=== PATIENT | male | born 1985 | race Caucasian/White ===

== ENCOUNTER 2022-03-26 12:09 | Inpatient (IN) | payer OTHER, SELFPAY ==
[2022-03-26] VITALS (10 sets, daily range): BP systolic 112–168; BP diastolic 67–100; PULSE 47–69; RESP 11–22; TEMP 36.1–37.1; O2SAT 95–100; BMI 41.1
--- NOTE | ~2022-03-26 | XR_ITS ---
EXAMINATION: XR WRIST, RIGHT CLINICAL INFORMATION: Pain, deformity COMPARISON: None TECHNIQUE: Two views of the right wrist. FINDINGS: Comminuted fracture of the distal radius. This includes a transverse fracture plane. Lucency extending adjacent articular surface, raising the possibility of intra-articular extension of the fracture plane. There is dorsal displacement of distal bone by proximally 7 mm . There is dorsal angulation of the distal bone. There is apparent dysmorphic appearance with slight bowing of the radius at the level of the distal radial metaphysis, which could represent a subtle fracture in this region. Question subtle fracture of the distal ulna/ulnar styloid with subtle lucency and slightly displaced osseous fragment along the medial aspect. Ulna negative variance. Soft tissue swelling around the wrist. XR/XR wrist RT 2V IMPRESSION: Comminuted displaced distal radial fracture. Intra-articular extension cannot be excluded. Question subtle bowing deformity of the distal radial diaphysis, as seen on the lateral view. Question subtle fracture of the distal ulna/ulnar styloid process, with a small displaced osseous fragment present in this region. Soft tissue swelling.
--- NOTE | ~2022-03-26 | FL_ITS ---
EXAMINATION: XR FLUOROSCOPY WITH IMAGES CLINICAL INFORMATION: Distal radius fracture. COMPARISON: 03/26/2022 TECHNIQUE: Fluoroscopy performed by Dr. Gongora. Fluoroscopy time: 41.92 seconds. Cumulative Dose: 1.5328 mGy. DAP: 0.0926 Gy-cm2. Images: 2. FINDINGS: There is placement of plate and screw fixation hardware transfixing the distal radial fracture with near-anatomic alignment. FL/FL guidance in OR IMPRESSION: Near-anatomic alignment of the distal radial fracture status post fixation.
--- NOTE | 2022-03-26 12:36 | ED_ITS ---
HPI - Extremity Problem General Chief complaint: Extremity Injury, Upper Stated complaint: WRIST PAIN S/P FALL Time Seen by Provider: 03/26/22 12:36 Source: patient and EMS Mode of arrival: EMS Limitations: no limitations History of Present Illness HPI Narrative: Patient is a 36 year old male presenting to the emergency department today with right wrist pain. Patient states that he was mowing the lawn when he fell backwards onto an out stretched right hand. Patient states that he did not hit his head in the incident and did not have any loss of consciousness with the incident. Patient denies any dizziness, lightheadedness, abdominal pain, nausea, vomiting, fever, chills, blurry vision, double vision, loss of vision, chest pain, difficulty breathing, shortness of breath, back pain, night sweats, pain with urination, increased urinary frequency, increased urinary urgency, blood in his urine or stool, syncope or a near syncopal episode, bowel incontinence, bladder incontinence, bowel retention, bladder retention, or any other complaints at this time. MD Complaint: extremity pain and extremity swelling Onset (ago): minute(s) Pain Consistency: constant Location: right and upper extremity Severity scale (1-10): 10 Quality: aching Radiation: none Relieving factors: nothing Exacerbating factors: range of motion Associated symptoms: denies other symptoms Related Data Allergies Allergy/AdvReac Type Severity Reaction Status Date / Time No Known Allergies Allergy Unverified 04/18/20 18:42 [No Known Allergies*] Review of Systems Constitutional: Constitutional: Reports no additional constitutional complaints, Denies chills, Denies fever(s) and Denies night sweats Eyes: Eyes: Reports no additional eye complaints, Denies blurry vision, Denies change in vision, Denies diplopia, Denies eye discharge, Denies loss of vision and Denies eye pain ENT: Denies dizziness Cardiovascular: Cardiovascular: Reports no additional cardiovascular compl aints, Denies chest pain, Denies lightheadedness, Denies Loss of Consciousness and Denies dyspnea Respiratory: Respiratory: Reports no additional respiratory complaints and Denies dyspnea Gastrointestinal: Gastrointestinal: Reports no additional gastrointestinal complaints, Denies abdominal pain, Denies melena, Denies hematochezia, Denies change in bowel habits and Denies change in stool character Genitourinary: Genitourinary: Reports no additional male genitourinary complaints, Denies hematuria, Denies oliguria, Denies difficulty urinating, Denies dysuria, Denies urinary frequency, Denies urinary hesitancy, Denies urinary incontinence and Denies urinary urgency Musculoskeletal: Musculoskeletal: Reports no additional musculoskeletal complaints, Denies numbness and Denies tingling Comments: right wrist pain Neurologic: Denies dizziness, Denies loss of vision, Denies numbness and Denies tingling Psychiatric: Psychiatric: Reports no additional psychiatric complaints Endocrine: Endocrine: Reports no additional endocrine complaints Hematologic/Lymphatic: Hematologic/Lymphatic: Reports no additional hematologic/lymphatic complaints Allergic/Immunologic: Allergic/Immunologic: Reports no additional allergic/immunologic complaints [facility] Past Medical History Attestation statement: The following information was validated with the patient. Source: old records reviewed Social History Social History Advance Directives: No Physical Exam Vital Signs: Vital Signs: Last Vital Signs Temp 98.6 F 03/26/22 12:25 Pulse 47 L 03/26/22 14:15 Resp 16 03/26/22 14:15 BP 154/91 H 03/26/22 14:15 Pulse Ox 99 03/26/22 14:15 O2 Del Method 03/26/22 14:15 BMI result Body Mass Index 41.1 Const: General: cooperative, no acute distress, alert and awake Nutritional Appearance: well nourished Orientation/consciousness: patient oriented x3 Limitations: no limitations HEENT: Head: Yes normal to inspection and Yes atraumatic Ears: hearing grossly normal bilaterally and external ears normal General nose exam: Normal external nose present, no nasal discharge noted and no epistaxis Face and sin us: Yes normal facial exam, No abrasion and No laceration Mouth: Normal oral and palatal mucosa present, no drooling and no muffled voice Eyes: General: appearance normal, both eyes and all related structures Periorbital: periorbital findings normal Eyelids: Yes eyelids normal Conjunctivae: conjunctivae normal Pupils: Equal, round and reactive pupils present EOM: EOMs intact bilaterally Neck: Neck: Yes normal visual inspection, Yes full ROM and Yes no lymphadenopathy Chest: Chest palpation & inspection: normal inspection of the chest Resp: Effort & Inspection: normal respiratory effort and able to speak in complete sentences Auscultation: clear to auscultation bilaterally Cardio: Rate: regular rate Rhythm: regular rhythm GI: Inspection: Yes normal to inspection Neuro: General: patient oriented x3 and moves all extremities Cranial nerves: Yes Equal, round and reactive pupils present Cognition (Neuro): normal cognition Motor exam (neuro): 5/5 motor strength present throughout Sensory Exam: Normal double simultaneous stimulation for sensation Coordination: [id number] test normal Extrem: Other: right wrist has obvious deformity with bruising to the volar radial aspect and a small area of bleeding, I believe this to be where the fracture punctured the skin though no bone is currently exposed General: Yes capillary refill normal Psych: Appearance: grossly normal Mental Status: mental status grossly normal Affect: normal affect Attitude: cooperative Thought process: Normal thought process present Thought content: Normal thought content present Insight: Good insight present (Psych) MDM - Extremity (Nontraumatic) MDM Narrative Medical decision making narrative: Patient is a 36 year old male presenting to the emergency department today with right wrist pain. Patient's physical exam showed obvious right wrist deformity with bruising to the volar radial aspect and minimal bleeding from the puncture of the fracture. Patient's blood work was unremarkable. Patient's right wrist x- ray showed a comminuted displaced distal radial fracture with a questionable fracture of the distal radial diaphysis and distal ulna/ulnar syloid process. I spoke to Dr. Gongora who requested I hang a broader antibiotic than ancef and stated that she would be taking the patient to the OR later this evening. Patient was brought up to date on tetanus, given Fentanyl and Dilaudid for pain management, and given Rocephin. I explained my physical exam findings as well as all test results to the patient. I answered all questions asked by the patient. Patient verbalized agreement and understanding with this treatment plan and transfer to the OR for procedure. Medical Records Attestation: I reviewed the patient's medical records. Lab Data Attestation: I reviewed the patient's lab results. Result diagrams: 03/26/22 13:16 03/26/22 13:16 Labs: Lab Results 03/26/22 03/26/22 03/26/22 Range/Units 13:16 13:16 13:16 WBC 9.7 (4.8-10.8) X10*3/uL RBC 4.43 L (4.60-5.80) X10*6/uL Hgb 14.1 (14.0-18.0) g/dl Hct 41.6 L (42.0-52.0) % MCV 93.9 (80.0-98.0) fL MCH 31.8 (27.0-33.0) pg MCHC 33.9 (31.0-36.0) g/dl RDW 12.6 (11.0-16.0) % Plt Count 296 (160-400) X10*3/uL MPV 8.7 L (9.4-12.4) fL Immature Gran % (Auto) 0.5 H (0.0-0.4) % Neut % (Auto) 62.1 (45-73) % Lymph % (Auto) 25.6 (20-40) % [place] % (Auto) 9.9 (2-11) % Eos % (Auto) 1.5 (0-4) % Baso % (Auto) 0.4 (0-2) % Lymph # (Auto) 2.5 (1.2-4.9) X10*3/uL [place] # (Auto) 1.0 (0.1-1.2) X10*3/uL Eos # (Auto) 0.2 (0.0-0.4) X10*3/uL Baso # (Auto) 0.0 (0.0-0.2) X10*3/uL Abs Immat Gran (auto) 0.05 H (0.00-0.03) X10*3/uL Absolute Neuts (auto) 6.0 (2.0-8.3) x10*3/uL Absolute Nucleated RBC 0.000 (0.0-0.012) X10*3/uL Nucleated RBC % (auto) 0.0 (0.0-0.2) /100WBC Sodium 139 (135-145) mmol/L Potassium 4.1 (3.3-5.1) mmol/L Chloride 106 (96-108) mmol/L Carbon Dioxide 24 (22-29) mmol/L Anion Gap 13 (12-20) BUN 16 (9-16) mg/dL Creatinine 0.80 (0.5-1.4) mg/dL Estim Creat Clear Calc 142.7 Estimated GFR > 60 Random Glucose 105 (60-115) mg/dL Calcium 9.1 (8.4-10.2) mg/dL Magnesium 1.8 (1.6-2.6) mg/dL Total Bilirubin 0.9 (0.0-1.0) mg/dL AST 20 (5-37) U/L ALT 27 (0-40) U/L Alkaline Phosphatase 59 (39-117) U/L Total Protein 7.3 (6.5-8.0) g/dL Albumin 4.2 (3.5-5.0) g/dL COVID-19 (RAVI) Negative (Negative) COVID-19 Clin Com See Note Imaging Data Right wrist x-ray: Attestation: I personally reviewed and interpreted this imaging study as follows: My impression: Acute wrist fracture. Radiologist's impression: EXAMINATION: XR WRIST, RIGHT CLINICAL INFORMATION: Pain, deformity? COMPARISON: None? TECHNIQUE: Two views of the right wrist. FINDINGS: Comminuted fracture of the distal radius. This includes a transverse fracture plane. Lucency extending adjacent articular surface, raising the possibility of intra-articular extension of the fracture plane. There is dorsal displacement of distal bone by proximally 7 mm . There is dorsal angulation of the distal bone. There is apparent dysmorphic appearance with slight bowing of the radius at the level of the distal radial metaphysis, which could represent a subtle fracture in this region. Question subtle fracture of the distal ulna/ulnar styloid with subtle lucency and slightly displaced osseous fragment along the medial aspect. Ulna negative variance. Soft tissue swelling around the wrist. XR/XR wrist RT 2V IMPRESSION: Comminuted displaced distal radial fracture. Intra-articular extension cannot be excluded. Question subtle bowing deformity of the distal radial diaphysis, as seen on the lateral view. ? Question subtle fracture of the distal ulna/ulnar styloid process, with a small displaced osseous fragment present in this region. ? Soft tissue swelling. Dictated By: Bill Dill MD Signed By: Electronically signed by Bill Dill MD 03/26/22 4287 Critical Care Time Critical Care Time Critical Care Time: Yes Total Critical Care Time: 30 Attestation: I spent 30 minutes of Critical Care Time with this patient. This does not include time spent on separately reported billable procedures. Discharge Plan Discharge Clinical Impression: Open fracture of right distal radius Patient Disposition: Still a Patient
[2022-03-26] MEDS: ondansetron HCL 4 MG/2 ML VIAL IVPUSH (13:02)
[2022-03-26] MEDS: fentaNYL citrate/PF 100 MCG/2 ML VIAL 50 MCG IVPUSH (13:02)
[2022-03-26 13:29] LABS: MANUAL DIFF FLAG NO
[2022-03-26] MEDS: cefTRIAXone sodium 2 GM in 0.9 % Sodium Chloride 50 ML IV (13:29)
[2022-03-26 13:30] LABS: Basophils Percent Auto 0.4 % (0-2); Eosinophils Absolute Auto 0.2 X10*3/uL (0.0-0.4); Eosinophils Percent Auto 1.5 % (0-4); Hematocrit 41.6 % (42.0-52.0); Hemoglobin 14.1 g/dl (14.0-18.0); Imm Gran Abs Auto 0.05 X10*3/uL (0.00-0.03); Imm Gran Pct Auto 0.5 % (0.0-0.4); Lymphocytes Absolute Auto 2.5 X10*3/uL (1.2-4.9); Lymphocytes Percent Auto 25.6 % (20-40); Mean Corpuscular HGB Conc 33.9 g/dl (31.0-36.0); Mean Corpuscular Hemoglobin 31.8 pg (27.0-33.0); Mean Corpuscular Volume 93.9 fL (80.0-98.0); Mean Platelet Volume 8.7 fL (9.4-12.4); Monocytes Percent Auto 9.9 % (2-11); Neutrophils Percent Auto 62.1 % (45-73); Platelet Count 296 X10*3/uL (160-400); Red Blood Count 4.43 X10*6/uL (4.60-5.80); Red Cell Distribution Width 12.6 % (11.0-16.0); White Blood Count 9.7 X10*3/uL (4.8-10.8)
[2022-03-26] MEDS: Diphth,Pertus(ACell),Tet Adult 0.5 ML SYRINGE IM (13:35)
[2022-03-26 13:53] LABS: Alanine Aminotransferase 27 U/L (0-40); Albumin Level 4.2 g/dL (3.5-5.0); Alkaline Phosphatase 59 U/L (39-117); Anion Gap 13 (12-20); Aspartate Amino Transferase 20 U/L (5-37); Bilirubin Total 0.9 mg/dL (0.0-1.0); Blood Urea Nitrogen 16 mg/dL (9-16); COVID-19 Test Negative (Negative); Calcium 9.1 mg/dL (8.4-10.2); Carbon Dioxide 24 mmol/L (22-29); Chloride 106 mmol/L (96-108); Creatinine Clr Calc Pharmacy 142.7; Estimated Glomerular Filt Rate > 60; Glucose Random 105 mg/dL (60-115); Magnesium 1.8 mg/dL (1.6-2.6); Potassium 4.1 mmol/L (3.3-5.1); Sodium 139 mmol/L (135-145); Total Protein 7.3 g/dL (6.5-8.0)
[2022-03-26] MEDS: HYDROmorphone HCl 1 MG/ML SYRINGE IVPUSH (14:37)
--- NOTE | 2022-03-26 15:58 | PM.CNOR ---
History of Present Illness [facility] Consult date: 03/26/22 Chief complaint: WRIST PAIN S/P FALL Narrative: the patient is a 36-year-old man who fell onto his outstretched right hand today while mowing the lawn. He appreciated and immediate Wrist deformity and an open wound on the volar aspect of his distal forearm. He complains of pain swelling ecchymosis and deformity of his right wrist. He also has some subjectively decreased sensation to the right thumb index and middle fingers. He denies pain about the elbow. Past medical history significant for HIV which he reports is being treated in an is no longer detectable. [facility] Social History Social History Advance Directives: No Meds Allergies Allergy/AdvReac Type Severity Reaction Status Date / Time No Known Allergies Allergy Unverified 04/18/20 18:42 [No Known Allergies*] Physical Exam Vital Signs: Vital Signs: Last Vital Signs Temp 98.6 F 03/26/22 12:25 Pulse 47 L 03/26/22 14:15 Resp 16 03/26/22 14:15 BP 154/91 H 03/26/22 14:15 Pulse Ox 99 03/26/22 14:15 O2 Del Method 03/26/22 14:15 BMI result Body Mass Index 41.1 Const: General: cooperative, healthy appearing and no acute distress Orientation/consciousness: oriented to person and oriented to place HEENT: Head: Yes normocephalic and Yes atraumatic Eyes: EOM: EOMs intact bilaterally Resp: Effort & Inspection: normal respiratory effort and able to speak in complete sentences Cardio: Jugular venous distension: no JVD Skin: General skin exam: turgor normal Rashes: no rashes Neuro: General: oriented to person and oriented to place Extrem: Other: Evaluation of right Upper Extremity: Neuro: decreased subjective sensation in the median nerve distribution of his right hand. More normal sensation to the small finger and dorsal aspect of the hand. Weak flexion extension of fingers limited by pain. Vascular: Cap refill brisk. Swelling and ecchymosis involving the right wrist. He also appears to be getting a pretty good size hematoma over the volar radial aspect of his right wrist where he has a small laceration consistent with a possible open distal radius fracture. Dinner fork deformity of the right wrist. No tenderness about the elbow. Radiographs: AP lateral of the right wrist Was reviewed by me today and shows a right distal radius fracture with dorsal displacement and an apex volar deformity. There is also a small ulnar styloid fracture. Psych: Appearance: grossly normal Affect: normal affect Attitude: cooperative Results Labs Result Diagrams: 03/26/22 13:16 03/26/22 13:16 Labs: Abnormal lab results 03/26/22 Range/Units 13:16 RBC 4.43 L (4.60-5.80) X10*6/uL Hct 41.6 L (42.0-52.0) % MPV 8.7 L (9.4-12.4) fL Immature Gran % (Auto) 0.5 H (0.0-0.4) % Abs Immat Gran (auto) 0.05 H (0.00-0.03) X10*3/uL H & H 03/26/22 Range/Units 13:16 Hgb 14.1 (14.0-18.0) g/dl Hct 41.6 L (42.0-52.0) % All other labs normal. Assessment and Plan (1) Open fracture of right distal radius: Status: Acute Plan assessment and plan: 1. Right open displaced distal radius fracture I educated him about this condition he is getting IV antibiotics in the emergency department. We discussed operative and non operative treatment options. I am recommending urgent / emergent I and D, open reduction internal fixation of the right to radius fracture and a right carpal tunnel release. The risks and benefits of operative treatment were discussed with the patient and the patient wishes to proceed with surgery. These risks include, but are not limited to risk of damage to blood vessels, nerves, tendons, infection, recurrence, incomplete relief of preoperative symptoms, persistent pain, possible need for further surgery and the risks associated with regional blocks and anesthesia. The plan is to take the patient to the operating room Today for the following procedures: 1. right open distal radius fracture I&D 2. ORIF of right distal radius fracture 3. Right carpal tunnel release All of the preoperative paperwork including the consent was filled out today. All the patient's questions were answered. Procedures Date of Service Date of Service: 03/26/22
--- NOTE | 2022-03-26 16:06 | W.PM.OPN ---
Operative Note Operative Note Date of Service: 03/26/22 Narrative: Operative Note Narrative: Preop diagnosis: 1. Open right Distal radius fracture 2. Acute right carpal tunnel syndrome Postop diagnosis: Same Procedure: 1. Open right distal radius fracture I and D 2. Right Distal radius fracture open reduction internal fixation 3. Right carpal tunnel release Surgeon: Sarita Gongora MD Anesthesia: General anesthesia plus regional block Findings: grade 1A open distal radius fracture, with volar poke hole from volar radial aspect of the radial shaft Implants: A 3 hole [employer] volar locking plate, with 5 X 2.3 mm locking pegs/screws, and 3 3.5 mm cortical screws Tourniquet time: 79 minutes EBL: 5.0 ml Specimen: None Drains: None Complications: None Disposition: Brought to the recovery room in stable condition Plan: admit overnight for IV antibiotics Follow-up in 4-7 days for wound check, and postop radiographs Anticipate suture removal at 10-14 days. Encourage no lifting of anything heavier than a cell phone. Please encourage active and passive range of motion of the digits. Follow-up at 4-5 weeks postop for repeat radiographs. Indications: The patient is a 36 year old man with an open right distal radius fracture with displacement, and acute carpal tunnel syndrome related to this injury. . The risks and benefits of operative treatment, including but not limited to risk of damage to blood vessels, nerves, tendons, infection, recurrence, persistent pain or numbness, incomplete resolution of preoperative symptoms, or need for further surgery were discussed with the patient and they wished to proceed with surgery. Procedure: Once consent was obtained patient was brought back to the operating suite and placed in the operating table in a supine position. A regional block was performed by the anesthesia team. Perioperative antibiotics and anesthesia was administered by the anesthesia team. A tourniquet was applied to the proximal aspect of the Right upper extremity and the limb was prepped and draped in a standard surgical fashion. The limb was elevated exsanguinated with Esmarch bandage and the tourniquet inflated to 250 mm of mercury for a total tourniquet time of 79 minutes. A 2.0 cm longitudinal incision was made centered over the right carpal tunnel. The incision was made through the skin to the subcutaneous tissues using a #15 blade. Dissection was made down to the level of the transverse carpal ligament with care being taken to protect the palmar cutaneous nerve. Once the transverse carpal ligament was clearly visualized, a longitudinal incision was made in the transverse carpal ligament 1st using a #15 blade, then using tenotomy scissors under direct visualization. Care was taken to look for and protect the motor branch of the median nerve when seen in this area. Once satisfied with our carpal tunnel release the wound was irrigated with normal saline. The FluoroScan was used throughout the case to assess our reduction, and facilitate implant placement. I made an 8 cm longitudinal incision over the distal aspect of the flexor carpi radialis tendon. The incision was made through the skin to the subcutaneous tissue using a 15. Blade. trauma within the subcutaneous tissues was immediately appreciated. The radial artery was displaced centrally and was somewhat free from its typical subcutaneous tasks mints. The volar radial corner of the radial shaft was noted within these subcutaneous tissues and is the most likely portion of the radius shaft that cause The 2 mm diameter open wound in the volar aspect of the distal forearm. I extended our incision proximally 2 additional cm proximally to find normal tissue and are volar forearm fascia. I identified the flexor carpi radialis tendon.. The FCR tendon sheath was then incised longitudinally using tenotomy scissors under direct visualization. The FCR tendon was then retracted ulnarly. I then made a longitudinal incision in the volar forearm fascia through the floor of FCR tendon sheath using tenotomy scissors under direct visualization. I identified the interval between the radial artery and the flexor tendons. This interval was developed further with my index finger, releasing some of the muscular fibers of the flexor pollicis longus. A dull weatlander retractor was then placed. I then created an ulnarly based flap of the pronator quadratus by releasing the radial and distal edges using a 15. Blade. A Lua elevator was used to elevate the pronator quadratus from the volar surface of the distal radius. This then revealed to us our distal radius fracture. I performed an I&D of air open fracture. A curette was used to carefully debride the end of the shaft of the radius which is the most likely portion of the radius the protruded through the skin. I did not see any gross debris. The fracture And soft tissues were then copiously irrigated with normal saline. An open reduction was then performed on our distal radius fracture. I then placed a standard 3 [facility] volar locking plate on the volar surface of the distal radius. I placed a single K-wire through the distal aspect of the plate and into the distal radius. This was assessed using fluoroscopic images. I was satisfied with the placement of our plate. I then placed 5 X 2.3 mm locking screws/pegs in the distal aspect of the plate and distal radius by 1st drilling bicortically with a 1.8 mm drill bit, measuring with a depth gauge, and placing the appropriate length locking screws/pegs. The placement of our plate and screws was then assessed again using fluoroscopic images. The once satisfied with the placement of the volar locking plate and screws on the distal aspect of the distal radius, the plate was then reduced to the shaft of the radius. I then placed 3 3.5 mm cortical screws to the proximal aspect of the plate and into the shaft of the radius. This was done by 1st drilling bicortically with a 2.8 mm drill bit, measuring with a depth gauge, and placing the appropriate length screw. Final radiographs were then obtained. The DRUJ was assessed and found to be stable on exam. I was satisfied with our reduction and placement of all implants. At this point the wound was again irrigated with normal saline. The pronator quadratus was reduced back over the volar locking plate. The tourniquet was then deflated and hemostasis was obtained with a brief period of local pressure and bipolar andmonopolar electrocautery. The subcutaneous layer was then reapproximated using some 4-0 Vicryl suture, and the skin edges were reapproximated using some 4-0 Prolene suture. The wound was then infiltrated with some 0.5% plain ropivacaine for postop pain control. A sterile dressing and a short dorsal splint allowing for active flexion and extension of the digits was applied. The patient appears to have tolerated the procedure well and with no complications. All digits were well vascularized conclusion of the case.
--- NOTE | 2022-03-26 17:17 | PC.NURSE ---
ambulating to and from bathroom w steady gait.
--- NOTE | 2022-03-26 18:41 | P.CONAN_ITS ---
HPI - Anesthesia Eval Consult details Narrative: Right radius fracture PMFSH Active Problems Active Problems: All Active Problems (Updated 03/26/22 @ 18:23 by Karoline Rider RN) Open fracture of right distal radius (Acute) Past Medical History Medical History (Updated 03/26/22 @ 18:23 by Karoline Rider RN) Asthma GERD (gastroesophageal reflux disease) HIV (human immunodeficiency virus infection) Hypertension Family History Family history of problems with anesthesia: No Surgical History History of Problems with Anesthesia: No Social History Social History Patient Tobacco Use Status: Current everyday Tobacco user Tobacco use type: Cigarette Use of substances other than those prescribed or required for medical reasons: Yes Are you DNR?: No Advance Directives: No Meds Allergies Allergy/AdvReac Type Severity Reaction Status Date / Time morphine AdvReac Itching Verified 03/26/22 18:18 Home Medications Medication Instructions Recorded Confirmed Last Taken Type abacavir 600 mg-dolutegravir 50 1 tab PO DAILY 03/26/22 03/26/22 Unknown History mg-lamivudine 300 mg tablet (Triumeq) lisinopril 20 1 tab PO DAILY 03/26/22 03/26/22 Unknown History mg-hydrochlorothiazide 25 mg tablet Exam Exam Date and Time: March 26, 20221840 Height,Weight and Vital Signs: Height 5 ft 4 in Weight 108.862 kg Last Vital Signs Temp 98.7 F 03/26/22 18:00 Pulse 50 03/26/22 18:00 Resp 11 L 03/26/22 18:00 BP 147/85 H 03/26/22 18:00 Pulse Ox 97 03/26/22 18:00 O2 Del Method 03/26/22 18:00 Pertinent Lab Results Pertinent Lab Results: Laboratory Tests 03/26/22 03/26/22 03/26/22 13:16 13:16 13:16 WBC 9.7 RBC 4.43 L Hgb 14.1 Hct 41.6 L MCV 93.9 MCH 31.8 MCHC 33.9 RDW 12.6 Plt Count 296 MPV 8.7 L Immature Gran % (Auto) 0.5 H Neut % (Auto) 62.1 Lymph % (Auto) 25.6 [place] % (Auto) 9.9 Eos % (Auto) 1.5 Baso % (Auto) 0.4 Lymph # (Auto) 2.5 [place] # (Auto) 1.0 Eos # (Auto) 0.2 Baso # (Auto) 0.0 Abs Immat Gran (auto) 0.05 H Absolute Neuts (auto) 6.0 Absolute Nucleated RBC 0.000 Nucleated RBC % (auto) 0.0 Sodium 139 Potassium 4.1 Chloride 106 Carbon Dioxide 24 Anion Gap 13 BUN 16 Creatinine 0.80 Estim Creat Clear Calc 142.7 Estimated GFR > 60 Random Glucose 105 Calcium 9.1 Magnesium 1.8 Total Bilirubin 0.9 AST 20 ALT 27 Alkaline Phosphatase 59 Total Protein 7.3 Albumin 4.2 COVID-19 (RAVI) Negative COVID-19 Clin Com See Note Airway Mallampati Class: II TM Dist: >3cm Neck ROM: Full Loose/Missing/Broken Teeth: No Heart: RRR Lungs: CTA Assessment and Plan Assessment Anesthesia Assessment: Anesthesia Plan Discussed and Chart Reviewed Final Anesthetic Review Family History of Problems with Anesthesia: No History of Problems with Anesthesia: No NPO: Yes ASA Class: III Final Preanesthetic Review: No Changes in Pt Med Stat, Meds/Allgs Chart Reviewed, Consent Obtained/Reviewed and Anes Risks/Benef Reviewed Patient Risk: Intermediate Procedure Risk: Intermediate Assessment/Block/Sedation in SS: Assess/Block/Sedation-SS Anesthetic Plan Anesthetic Plan: GA, MAC: and Regional Block Disposition: Standard PACU
--- NOTE | 2022-03-26 18:44 | PC.NURSE ---
[address] LEWIS TO REPORT PATIENT WITH BLEEDING NOTED TO OPEN AREA. PATIENT REPORTING NUMBNESS TO RIGHT RING FINGER AND THUMB
--- NOTE | 2022-03-26 19:45 | MHC.SHP ---
Pre-Procedural Eval Section A Date of Service: 03/26/22 The patient is an INPATIENT: No The History & Physical has been completed within 30 days and I have reviewed it.: Yes Section B Chief Complaint: right open distal radius fracture Allergies: Allergies Allergy/AdvReac Type Severity Reaction Status Date / Time morphine AdvReac Itching Verified 03/26/22 18:18 Plan I have reviewed the history and physical and performed a pertinent physical examination on my patient. No changes have occurred unless specified.
[2022-03-26] MEDS: oxyCODONE HCl Immed Release 5 MG TABLET 10 MG PO (22:57)
[2022-03-27] MEDS: 0.9 % Sodium Chloride Flush 3 ML SYRINGE IVFLUSH ×2 (01:09→07:41)
[2022-03-27] MEDS: ceFAZolin Sodium/Dextrose,Iso 2 GM/50 ML PIGGYBACK IV (01:57)
[2022-03-27 03:54] VITALS: BP 136/65; PULSE 65; RESP 18; TEMP 36.5; O2SAT 97
[2022-03-27 07:41] VITALS: BP 136/79; PULSE 60; RESP 17; TEMP 36.6; O2SAT 98
--- NOTE | 2022-03-27 07:41 | PM.DS ---
DS: Providers Provider Date of Service: 03/27/22 Date of admission: 03/26/22 19:19 Primary care physician: Sanjay Fish MD Consults: 03/26/22 22:40 Consult to Hospitalist Stat Consulting Provider: Hospitalist Reason For Exam: pt with HIV, asthma, HTN, sleep apnea DS: Diagnosis Discharge Diagnosis (1) Open fracture of right distal radius: Status: Acute DS: Summary Hospital Course Hospital Course: The patient underwent a successful right wrist ORIF, they were transferred to PACU and then to the floor to recover. During their stay, their vitals were stable, afebrile at 97.7. IV antibiotics completed prior to discharge. Prior to discharge, their splint was clean dry and intact and the plan was to be discharged home. Time Spent with Patient Time attestation: Total time spent providing and/or coordinating discharge services: Discharge coordination time: Less than 30 minutes Quality: Safe Use of Opioids Does Pt have an Active Cancer Diagnosis on the Problem List?: No Quality: Stroke Does the patient have a stroke diagnosis?: No Physical Exam Vital Signs: Vital Signs: Last Vital Signs Temp 97.7 F 03/27/22 03:54 Pulse 65 03/27/22 03:54 Resp 18 03/27/22 03:54 BP 136/65 03/27/22 03:54 Pulse Ox 97 03/27/22 03:54 O2 Del Method 03/27/22 03:54 O2 Flow Rate 4 03/26/22 19:34 BMI result Body Mass Index 41.1 Const: General: cooperative, healthy appearing and no acute distress Resp: Effort & Inspection: normal respiratory effort and able to speak in complete sentences Cardio: Rate: regular rate Peripheral pulses: Peripheral pulses 2+ throughout GI: Palpation (GI): Soft to palpation Skin: Lesions: no lesions Rashes: no rashes Extrem: Other: Right wrist splint is clean, dry, and intact. Able to slightly move digits - Block is still effective. Capillary refill is brisk. DS: Data Data Completed and Pending Labs on day of discharge: Laboratory Results - last 24 hr 03/26/22 03/26/22 03/26/22 13:16 13:16 13:16 WBC 9.7 RBC 4.43 L Hgb 14.1 Hct 41.6 L MCV 93.9 MCH 31.8 MCHC 33.9 RDW 12.6 Plt Count 296 MPV 8.7 L Immature Gran % (Auto) 0.5 H Neut % (Auto) 62.1 Lymph % (Auto) 25.6 [place] % (Auto) 9.9 Eos % (Auto) 1.5 Baso % (Auto) 0.4 Lymph # (Auto) 2.5 [place] # (Auto) 1.0 Eos # (Auto) 0.2 Baso # (Auto) 0.0 Abs Immat Gran (auto) 0.05 H Absolute Neuts (auto) 6.0 Absolute Nucleated RBC 0.000 Nucleated RBC % (auto) 0.0 Sodium 139 Potassium 4.1 Chloride 106 Carbon Dioxide 24 Anion Gap 13 BUN 16 Creatinine 0.80 Estim Creat Clear Calc 142.7 Estimated GFR > 60 Random Glucose 105 Calcium 9.1 Magnesium 1.8 Total Bilirubin 0.9 AST 20 ALT 27 Alkaline Phosphatase 59 Total Protein 7.3 Albumin 4.2 COVID-19 (RAVI) Negative COVID-19 Clin Com See Note Discharge Plan Discharge Patient Disposition: Home, Self-Care Discharge Diagnosis: s/p right wrist ORIF Referrals: Sanjay Fish MD [Primary Care Provider] - 1 Week Discharge Medications: New acetaminophen 325 mg Tablet 650 mg PO Q6H PRN (Reason: Pain, Mild (Pain Scale 1-3)) 30 Days Qty: 240 0RF oxycodone 5 mg Tablet 5 mg PO Q4H PRN (Reason: Pain, Severe (Pain Scale 7-10)) 7 Days Qty: 42 0RF Rx Instructions: Partial Fill upon patient request. Continued lisinopril-hydrochlorothiazide 20-25 mg tablet 1 tab PO DAILY Triumeq 600-50-300 mg tablet 1 tab PO DAILY albuterol sulfate 2.5 mg /3 mL (0.083 %) solution for nebulization inhalation omeprazole 40 mg capsule,delayed release(DR/EC) 1 cap PO DAILY albuterol sulfate 90 mcg/actuation HFA aerosol inhaler inhalation topiramate 50 mg tablet 1 tab PO BID budesonide-formoterol [Symbicort] 160-4.5 mcg/actuation HFA aerosol inhaler 2 puff INHALATION BID Discharge Orders: Discharge Order (Routine); Ordered 03/27/22 Ordered By: Humera James Activity on Discharge: Use Splints or Immobilizers Stand Alone Forms: Patient Portal Discharge page Care Plan Goals: Restore fxn to right wrist Health Concerns: None Plan of Treatment: Keep splint clean, dry, and intact Elevate throughout the day No lifting Perform fist/finger exercises throughout the day Do not bathe or shower--keep splint dry Take Oxycodone 5mg tabs 1 tab by mouth every 4-[address] [facility] orthopedics with any questions or concerns. Follow up with orthopedics in 7-10 days post op Assessment: Stable for discharge
--- NOTE | 2022-03-27 08:36 | MHC.CM.PN ---
PATIENT LIVES WITH FAMILY HCP, EDUCATED HE DECLINED TO COMPLETE AT THIS TIME IS INDEPENDENT AT HOME AND COMMUNITY, EMPLOYED DENIES USE OF DME OR RECEIVING HOME SERVICES [employer] PCP: JAYNA [facility]SW[facility] PLAN: HOME SELF-CARE
--- NOTE | 2022-03-27 08:57 | MHC.CM.PN ---
PATIENT IS MEDICALLY CLEARED FOR DISCHARGE TODAY; DISCHARGE DISPOSITION IS HOME SELF-CARE. FAMILY WILL TRANSPORT.
[2022-03-27] MEDS: oxyCODONE HCl Immed Release 5 MG TABLET PO (09:06)
[2022-03-27] MEDS: Acetaminophen 325 MG TABLET 650 MG PO (09:06)
--- NOTE | 2022-03-27 14:53 | HO.POSTANES ---
Post Anesthesia Evaluation Post Anesthesia Evaluation Vital Signs: Vital Signs Temp Pulse Resp BP Pulse Ox O2 Del Method 03/27/22 07:41 97.9 F 60 17 136/79 98 Room Air 03/27/22 03:54 97.7 F 65 18 136/65 97 Room Air Anesthesia: General Mental Status: Awake Pain Control: Satisfactory Nausea/Vomiting: None Hydration: Adequate Anesthesia-Related Issues: No Anes. Related Issues
--- NOTE | 2022-03-28 19:50 | HO.POSTANES ---
Post Anesthesia Evaluation Post Anesthesia Evaluation Anesthesia: Monitored Mental Status: Awake Pain Control: Satisfactory Nausea/Vomiting: None Hydration: Adequate Anesthesia-Related Issues: No Anes. Related Issues
== END 2022-03-27 09:57 | disposition home or self-care (01) | DRG 315 ==
LOC: HO.ED 18:00 → HO.SSS 19:41 → HO.EDOVER 19:54 → HO.S3 22:17
PROVIDERS: Physician Assistant Medical; Admitting Provider Orthopaedic Surgery; Emergency Provider Emergency Medicine; PCP Internal Medicine Infectious Disease; Visit Provider Orthopaedic Surgery
PROC: 0PSH04Z Reposition Right Radius with Internal Fixation Device, Open Approach (ICD-10-PCS; CPT 25607; principal; 2022-03-26 18:00)
DX: S52.501B Unspecified fracture of the lower end of right radius, initial encounter for open fracture type I or II (principal); F17.210 Nicotine dependence, cigarettes, uncomplicated; W18.30XA Fall on same level, unspecified, initial encounter; I10 Essential (primary) hypertension; J45.909 Unspecified asthma, uncomplicated; G56.01 Carpal tunnel syndrome, right upper limb; K21.9 Gastro-esophageal reflux disease without esophagitis; Z21 Asymptomatic human immunodeficiency virus [HIV] infection status; Z20.822 Contact with and (suspected) exposure to COVID-19; Z71.6 Tobacco abuse counseling; Z88.5 Allergy status to narcotic agent; Z79.899 Other long term (current) drug therapy
CPT/HCPCS: 25607; 11012; 64721; 73100; 80053; 83735; 85025; 87635; 90471; 90715; 96365; 96375; 99285; C1713; C1769; J0690; J0696; J1100; J1170; J2250; J2405; J2550; J2795; J3010

== ENCOUNTER 2022-03-27 19:55 | Emergency (ER) | payer OTHER, SELFPAY | END 2022-03-27 23:47 | disposition left against medical advice (07) | PROVIDERS: Emergency Provider Emergency Medicine | DX: M79.601 Pain in right arm (principal) ==

== ENCOUNTER 2022-03-28 18:13 | Emergency (ER) | payer OTHER, SELFPAY ==
[2022-03-28 18:41] VITALS: BP 151/99; PULSE 84; RESP 19; TEMP 37.3; O2SAT 97; BMI 41.1
--- NOTE | 2022-03-28 22:31 | ED_ITS ---
HPI - Extremity Problem General Chief complaint: Extremity Problem Stated complaint: L Arm Incision Leaking Time Seen by Provider: 03/28/22 20:42 Source: patient Mode of arrival: ambulatory Limitations: no limitations History of Present Illness HPI Narrative: Patient comes to the emergency room complaining of his partial spent in his right wrist being wet and smelly. Two days ago patient had surgery in his wrist . A splint was placed. Patient states that he has been draining serosanguineous fluid since then and his splint is wet and smells ?like socks?. Patient called orthopedics on-call, he was asked to come to the emergency room to have his dressings changed. Patient denies any fever or chills, no significant pain at the incision site. Related Data Home Medications Medication Instructions Recorded Confirmed abacavir 600 mg-dolutegravir 50 1 tab PO DAILY 03/26/22 03/26/22 mg-lamivudine 300 mg tablet (Triumeq) albuterol sulfate 2.5 mg/3 mL mg inhalation 03/26/22 (0.083 %) solution for nebulization albuterol sulfate 90 mcg/actuation inhalation 03/26/22 aerosol inhaler budesonide-formoterol HFA 160 2 puff inhalation BID 03/26/22 03/26/22 mcg-4.5 mcg/actuation aerosol inhaler (Symbicort) lisinopril 20 1 tab PO DAILY 03/26/22 03/26/22 mg-hydrochlorothiazide 25 mg tablet omeprazole 40 mg capsule,delayed 1 cap PO DAILY 03/26/22 release topiramate 50 mg tablet 1 tab PO BID 03/26/22 Previous Rx's Medication Instructions Recorded acetaminophen 325 mg tablet 650 mg PO Q6H PRN Pain, Mild (Pain 03/27/22 Scale 1-3) 30 days #240 tabs amoxicillin 500 mg-potassium 1 tab PO Q12H 10 days #20 tabs 03/27/22 clavulanate 125 mg tablet (Augmentin) oxycodone 5 mg tablet 5 mg PO Q4H PRN Pain, Severe (Pain 03/27/22 Scale 7-10) 7 days #42 tabs Allergies Allergy/AdvReac Type Severity Reaction Status Date / Time morphine AdvReac Itching Verified 03/28/22 18:41 Review of Systems Review of Systems: Constitutional : No Weight loss, No Fever, No Chills, No Night Sweats, No Fatigue, No Malaise ENT/Mouth : No Hearing loss, No Ear Pain, No Nasal Congestion, No Sinus Pain, No Hoarseness, No sore throat, No Rhinorrhea, No Swallowing Difficulty Eyes: No Eye Pain, No Swelling, No Redness, No Foreign Body, No Discharge, No Vision Changes Cardiovascular : No Chest Pain, No SOB, No Dyspnea on Exertion, No Orthopnea, No Edema, No Palpitations Respiratory : No Cough, No Sputum, No Wheezing, No Smoke Exposure, No Dyspnea Gastrointestinal : No Nausea, No Vomiting, No Diarrhea, No Constipation, No abdominal Pain, No Hematochezia, No Melena Genitourinary : no irregular bleeding, No Dysuria, No Urinary Frequency, No Hematuria, No Urinary Incontinence, No Urgency, No Flank Pain, No Urinary Flow Changes, No Hesitancy Musculoskeletal : Healing right wrist, complaining of his pain being wet with blood/fluid Skin : No Skin Lesions, No rash Neuro : No Weakness, No Numbness, No Paresthesias, No Loss of Consciousness, No Dizziness, No Headache Psych : No Anxiety/Panic, No Depression, No SI/HI/AH/VH, No Social Issues, Heme/Lymph: No Bruising, No Bleeding,No Lymphadenopathy Endocrine : No Polyuria, No Polydipsia, No Temperature Intolerance PMFSH Past Medical History Medical History Asthma GERD (gastroesophageal reflux disease) HIV (human immunodeficiency virus infection) Hypertension Social History Social History Patient Tobacco Use Status: Current everyday Tobacco user Tobacco use type: Cigarette Cigarette Packs Per Day: 0.25 Cigarettes Per Day: 5.0 Second Hand Smoke Exposure: No Advance Directives: No Advance Directives Information Provided: No service: No Current occupational status: employed Physical Exam Vital Signs: Vital Signs: Last Vital Signs Temp 99.2 F 03/28/22 18:41 Pulse 84 03/28/22 18:41 Resp 19 03/28/22 18:41 BP 151/99 H 03/28/22 18:41 Pulse Ox 97 03/28/22 18:41 O2 Del Method 03/28/22 18:41 BMI result Body Mass Index 41.1 Const: Other: Appearance: Alert. Oriented X3. No acute distress. Eyes: Pupils equal, round and reactive to light. ENT: Pharynx normal. Neck: Normal inspection. Neck supple. No lymph nodes noted. No crepitus CVS: Normal heart rate and rhythm. Pulses normal. Normal S1 and S2 Respiratory: No respiratory distress. Breath sounds normal. No Wheezing. No rales Abdomen: Soft and nontender. No rigidity. No distention. Skin: Skin warm and dry. See extremities below Extremities: No lower extremity edema. Splint was removed, there is ecchymosis around the side, stitches look clean, no active bleeding/drainage. No signs of cellulitis, no crepitus Neuro: Oriented X 3. No motor deficit. No sensory deficit. Moving all extremities. No slurred speech. CN 2 through 12 grossly intact Psych: calm, cooperative, normal affect Course Course Course Narrative: Patient's surgical signs was cleaned and dried. The splint was replaced with new materials. Patient instructed to follow-up with orthopedics as scheduled. Discharge Plan Discharge Clinical Impression: Aftercare for cast or splint check or change Patient Disposition: Home, Self-Care Instructions: Splint Care (ED) Additional Instructions: Please follow-up with your primary care physician tomorrow. If you have any worsening or new symptoms, please return to the emergency room or call 911 Prescriptions: No Action lisinopril-hydrochlorothiazide 20-25 mg tablet 1 tab PO DAILY Triumeq 600-50-300 mg tablet 1 tab PO DAILY albuterol sulfate 2.5 mg /3 mL (0.083 %) solution for nebulization inhalation omeprazole 40 mg capsule,delayed release(DR/EC) 1 cap PO DAILY albuterol sulfate 90 mcg/actuation HFA aerosol inhaler inhalation topiramate 50 mg tablet 1 tab PO BID budesonide-formoterol [Symbicort] 160-4.5 mcg/actuation HFA aerosol inhaler 2 puff INHALATION BID acetaminophen 325 mg Tablet 650 mg PO Q6H PRN (Reason: Pain, Mild (Pain Scale 1-3)) 30 Days Qty: 240 0RF oxycodone 5 mg Tablet 5 mg PO Q4H PRN (Reason: Pain, Severe (Pain Scale 7-10)) 7 Days Qty: 42 0RF Rx Instructions: Partial Fill upon patient request. amoxicillin-pot clavulanate [Augmentin] 500-125 mg tablet 1 tab PO Q12H 10 Days Qty: 20 0RF
== END 2022-03-28 23:02 | disposition home or self-care (01) ==
PROVIDERS: Emergency Provider Emergency Medicine; PCP Internal Medicine Infectious Disease
DX: S52.501E Unspecified fracture of the lower end of right radius, subsequent encounter for open fracture type I or II with routine healing (principal); X58.XXXD Exposure to other specified factors, subsequent encounter
CPT/HCPCS: 29125; 99281; 99283

== ENCOUNTER → 2022-03-31 14:12 | Outpatient (BNVA) | payer OTHER, SELFPAY | PROVIDERS: PCP Internal Medicine Infectious Disease; Visit Provider Physician Assistant | DX: S52.501B Unspecified fracture of the lower end of right radius, initial encounter for open fracture type I or II (principal) | CPT/HCPCS: 29085 ==

== ENCOUNTER 2022-04-10 12:37 | Outpatient (REF) | payer OTHER, SELFPAY ==
--- NOTE | ~2022-04-10 | XR_ITS ---
EXAMINATION: XR WRIST, RIGHT CLINICAL INFORMATION: Pain. COMPARISON: Fluoroscopy and radiographs dated 03/26/2022. TECHNIQUE: PA, lateral, and oblique views of the right wrist. FINDINGS: Bony alignment and mineralization are normal. There is a neutral ulnar variance. There is stable alignment of a distal right radial fracture status-post ORIF. Alignment is well-maintained, with only mild displacement. There is an intact orthopedic fixator plate and fixator screws, without hardware failure or loosening noted. A nondisplaced ulnar styloid fracture is noted. XR/XR wrist RT min 3V IMPRESSION: There is stable, well-maintained alignment of a distal right radial metaphyseal fracture status-post ORIF. No hardware failure or loosening is seen. There is stable alignment of a nondisplaced ulnar styloid fracture.
== END 2022-04-10 12:38 | disposition home or self-care (01) ==
LOC: HO.HOSX 12:37
PROVIDERS: Visit Provider Physician Assistant
DX: S52.501B Unspecified fracture of the lower end of right radius, initial encounter for open fracture type I or II (principal)
CPT/HCPCS: 29085; 73110

== ENCOUNTER → 2022-04-20 12:34 | Outpatient (BNVA) | payer OTHER, SELFPAY | PROVIDERS: PCP Internal Medicine Infectious Disease; Visit Provider Physician Assistant | DX: S52.501B Unspecified fracture of the lower end of right radius, initial encounter for open fracture type I or II (principal) | CPT/HCPCS: 29085 ==

== ENCOUNTER 2022-05-06 14:05 | Outpatient (REF) | payer OTHER, SELFPAY ==
--- NOTE | ~2022-05-06 | XR_ITS ---
EXAMINATION: XR WRIST, RIGHT CLINICAL INFORMATION: Pain. COMPARISON: Right wrist 04/10/2022 TECHNIQUE: PA, lateral, and oblique views of the right wrist. FINDINGS: Distal radial fracture has been stabilized with volar plate and screws. There is a nonhealed ulnar styloid process fracture with minimal displacement. No additional fracture seen. The soft tissues are normal. XR/XR wrist RT min 3V IMPRESSION: There aligned distal radial fracture with metallic plate and screws and a nonhealed minimally displaced ulnar styloid process fracture are stable.
== END 2022-05-06 14:06 | disposition home or self-care (01) ==
LOC: HO.HOSX 14:05
PROVIDERS: Visit Provider Orthopaedic Surgery
DX: M25.531 Pain in right wrist (principal)
CPT/HCPCS: 73110

== ENCOUNTER 2022-06-10 | Outpatient (REF) | payer OTHER, SELFPAY ==
--- NOTE | ~2022-06-10 | XR_ITS ---
EXAMINATION: XR WRIST, RIGHT CLINICAL INFORMATION: Pain. COMPARISON: Radiograph of the right wrist 05/06/2022. TECHNIQUE: PA, lateral, and oblique views of the right wrist. FINDINGS: Redemonstration of fixation plate and traversing screws in the distal radius. No evidence of hardware failure. Again noted nonhealed distal radial and ulnar fractures, not significantly changed when compared to 05/06/2022. No interval injury. Persistent diffuse nonspecific soft tissue swelling. XR/XR wrist RT min 3V IMPRESSION: 1. No significant change when compared to 05/06/2022. 2. No evidence of hardware failure.
== END 2022-06-10 00:01 | disposition home or self-care (01) ==
LOC: HO.HOSX
PROVIDERS: Visit Provider Orthopaedic Surgery
DX: M25.531 Pain in right wrist (principal)
CPT/HCPCS: 73110

== ENCOUNTER 2023-02-13 10:23 | Emergency (ER) | payer OTHER, SELFPAY ==
[2023-02-13 10:25] VITALS: BP 200/99; PULSE 88; RESP 20; TEMP 36.2; O2SAT 95; BMI 48.3
[2023-02-13 11:42] VITALS: BP 207/129; PULSE 90; RESP 16; O2SAT 98
[2023-02-13] MEDS: Amoxicillin/Potassium Clav 875 MG TABLET PO (11:43)
[2023-02-13] MEDS: oxyCODONE HCl Immed Release 5 MG TABLET PO (11:44)
[2023-02-13] MEDS: hydroCHLOROthiazide 25 MG TABLET PO (11:44)
[2023-02-13] MEDS: lisinopriL 20 MG TABLET PO (11:44)
--- NOTE | 2023-02-13 12:20 | ED_ITS ---
HPI - Dental/Oral General Chief complaint: Dental/Oral Stated complaint: ? infection under tooth Time Seen by Provider: 02/13/23 11:05 Source: patient Mode of arrival: ambulatory Limitations: no limitations History of Present Illness HPI Narrative: Patient is a 37-year-old male presents emergency department for evaluation of dental pain with concern for dental infection. He states that he has been followed by his dental provider, has not seen them in approximately 6 months. He has required deep cleaning, states he was supposed return for further cleaning but did not do so because he was scared . He was referred to a maxillofacial surgeon for extraction of his wisdom teeth but he has yet scheduled an appointment to do so. Over the past 3 days he developed pain to the left upper teeth, a foul smell to his breath, in addition he bit the left lateral side of his tongue which is painful. He has been using Orajel and ibuprofen without any significant improvement. He denies any purulent discharge from the gums. Denies fevers, chills, sore throat, ear pain, neck pain, chest pain, shortness of breath, difficulty breathing. Patient noted to be hypertensive during triage, when asked he states that he has been rationing his antihypertensives he is currently prescribed lisinopril- HCTZ 20-25 mg. States that he last took this medication approximately 1 week ago as he is in the process of obtaining a new primary care provider and does not have any refills. Denies headache, lightheadedness, dizziness, Vision changes, neck pain, chest pain, shortness of breath, Numbness or tingling, weakness. Related Data Home Medications Medication Instructions Recorded Confirmed abacavir 600 mg-dolutegravir 50 1 tab PO DAILY 03/26/22 03/26/22 mg-lamivudine 300 mg tablet (Triumeq) albuterol sulfate 2.5 mg/3 mL mg inhalation 03/26/22 (0.083 %) solution for nebulization albuterol sulfate 90 mcg/actuation inhalation 03/26/22 aerosol inhaler budesonide-formoterol HFA 160 2 puff inhalation BID 03/26/22 03/26/22 mcg-4.5 mcg/actuation aerosol inhaler (Symbicort) lisinopril 20 1 tab PO DAILY 03/26/22 03/26/22 mg-hydrochlorothiazide 25 mg tablet omeprazole 40 mg capsule,delayed 1 cap PO DAILY 03/26/22 release topiramate 50 mg tablet 1 tab PO BID 03/26/22 Previous Rx's Medication Instructions Recorded acetaminophen 325 mg tablet 650 mg PO Q6H PRN Pain, Mild (Pain 03/27/22 Scale 1-3) 30 days #240 tabs amoxicillin 500 mg-potassium 1 tab PO Q12H 10 days #20 tabs 03/27/22 clavulanate 125 mg tablet (Augmentin) amoxicillin 875 mg-potassium 1 tab PO BID #13 tabs 02/13/23 clavulanate 125 mg tablet chlorhexidine gluconate 0.12 % 15 ml mucous membrane DAILY #118 mL 02/13/23 mouthwash lisinopril 20 1 tab PO DAILY #30 tabs 02/13/23 mg-hydrochlorothiazide 25 mg tablet oxycodone 5 mg tablet 5 mg PO Q6H PRN pain #10 tabs 02/13/23 Allergies Allergy/AdvReac Type Severity Reaction Status Date / Time morphine AdvReac Itching Verified 02/13/23 10:24 Review of Systems Review of Systems: Constitutional : No Fever, No Chills, No changes in PO intake, No difficulty speaking,? no recent dental procedure, no heat or cold intolerance while eating, no recent face trauma, ENT/Mouth : No swallowing difficulty, no change in voice, No jaw pain, No facial swelling, no drooling, no trismus, no bleeding, no throat swelling, no lacerations, no tongue swelling, gum swelling, Eyes: No Eye Pain, No periorbital Swelling Cardiovascular : No Chest Pain, No SOB Respiratory : No Cough, No Sputum, No Wheezing, No Smoke Exposure, No Dyspnea Gastrointestinal : No Nausea, No Vomiting, No Diarrhea Genitourinary : No Dysuria Musculoskeletal : No Myalgias Skin : No rash, no facial swelling or redness, Neuro : No Weakness, No Numbness, No Headache Yes all other systems are reviewed and are negative PMFSH Past Medical History Attestation statement: The following information was validated with the patient. Source: old records reviewed Medical History Asthma GERD (gastroesophageal reflux disease) HIV (human immunodeficiency virus infection) Hypertension Social History Social History Patient Tobacco Use Status: Current everyday Tobacco user Tobacco use type: Cigarette Cigarette Packs Per Day: 0.25 Cigarettes Per Day: 5.0 Second Hand Smoke Exposure: No Advance Directives: No Advance Directives Information Provided: Yes service: No Current occupational status: employed Physical Exam Vital Signs: Vital Signs: Last Vital Signs Temp 97.4 F 02/13/23 12:40 Pulse 85 02/13/23 12:40 Resp 15 02/13/23 12:40 BP 171/100 H 02/13/23 13:31 Pulse Ox 97 02/13/23 12:40 O2 Del Method Room Air 02/13/23 12:40 BMI result Body Mass Index 48.3 Appearance: Alert. Oriented X3. No acute distress. Head: Normal external exam. Normocephalic. Atraumatic. Eyes: PERRLA. EOMI. Conjunctiva and sclera normal. Eyelids normal. ENT: EAC normal. TM's Normal. Pharynx normal. Uvula midline. Moist mucous membranes.? ?No trismus noted.? No drooling noted.? No muffled voice noted. Dentition:? Patient with poor dentition throughout with multiple old fractured teeth with multiple dental caries.? Gingival within normal limits.? No fluctuance.? Neck: Normal inspection. Neck supple. FROM. No adenopathy. Thyroid Normal. No meningeal signs. No neck mass noted.? Trachea midline. CVS: Normal heart rate and rhythm. Heart sound normal. No murmurs noted. Pulses normal throughout. Respiratory: No respiratory distress. Painless inspiration. Breath sounds normal. No wheezes/rales/rhonchi noted. Chest nontender. ?No accessory muscle usage noted or decreased air movement noted. Back:? Full range of motion noted. Skin: Skin warm and dry.? Normal skin color.? Normal skin turgor. No rashes/lesions/lacerations noted. Extremities: Extremities exhibit normal range of motion.? Extremities nontender. Neuro: Oriented X 3.? No motor deficit.? No sensory deficit.? Reflexes normal. Course Reevaluation(s) Reevaluation #1: blood pressure on repeat 171/100, at this time he remains asymptomatic low concern for end-organ damage at this time. Will discharge home with prescription for antihypertensive refill and advised prompt follow-up with his primary care provider for further refill. Discussed worsening signs and symptoms that would warrant re-evaluation in the emergency department. All questions answered. Stable for discharge. Time: 13:34 Medications Administered Discontinued Medications Generic Name Dose Route Start Last Admin Trade Name Esther PRN Reason Stop Dose Admin Amoxicillin/Clavulanate Potassium 875 mg 02/13/23 11:34 02/13/23 11:43 Amoxicillin/Potassium Clav 875 Mg Tablet PO 02/13/23 11:35 875 mg ONCE ONE Administration Hydrochlorothiazide 25 mg 02/13/23 11:34 02/13/23 11:44 Hydrochlorothiazide 25 Mg Tablet PO 02/13/23 11:35 25 mg ONCE ONE Administration Protocol Lisinopril 20 mg 02/13/23 11:34 02/13/23 11:44 Lisinopril 20 Mg Tablet PO 02/13/23 11:35 20 mg ONCE ONE Administration Protocol Oxycodone HCl 5 mg 02/13/23 11:34 02/13/23 11:44 Oxycodone Hcl Immed Release 5 Mg Tablet PO 02/13/23 11:35 5 mg ONCE ONE Administration Medical Decision Making Medical Decision Making MDM Narrative: patient is a 37-year-old male presenting to emergency department for evaluation of dental pain as per HPI. At the time my examination he is overall well- appearing. Nontoxic, afebrile. Examination does not appear consistent with peritonsillar abscess, no visible dental abscess, no salivary duct obstruction noted. Who comes or erythematous with dental fracture and caries concerning for infection at this time. He has a small ulceration to the left lateral tone were he reports having bitten the tongue. Discussed with patient plan of care for treatment with Augmentin, Acetaminophen/ ibuprofen for pain, in addition to oxycodone as needed in reviewed precautions with usage of this. outpatient follow-up with his dental provider, worrisome signs and symptoms that would warrant re-evaluation in the emergency department. Regarding patient's hyp ertension, currently asymptomatic however most recent reading of 207/129, will administer patient's routine antihypertensives and re-evaluate. We discussed outpatient follow-up with primary care provider so that he may remain taking his dosage as prescribed as opposed to rationing . We discussed the potential complications of untreated hypertension over time including risks for stroke, heart attack, and of which patient verbalized understanding. Differential Diagnosis Differential Diagnoses: The differential diagnosis associated with the presentation includes ( As noted above) Admission/Observation Consideration of admission/observation: Escalation of care including admis jayleen/observation considered ( I considered admission for hypertensive urgency, however after receiving his oral antihypertensives that he did not take today's blood pressure improved, therefore no indication for admission) External Record Review External record reviewed: Other ( I reviewed [facility] prior to prescribing oxycodone, no conflicts. ) Tests considered The following testing was considered but not selected: I considered Lab/CT imaging the soft tissue neck for evaluation of dental abscess, however based on physical examination lower suspicion at this time therefore CT imaging was deferred. Prescription Management I considered prescription management with: Pain Medication and Antibiotic Discharge Plan Discharge Clinical Impression: Dental infection, Asymptomatic hypertensive urgency Patient Disposition: Home, Self-Care Instructions: Hypertensive Crisis (ED) Additional Instructions: regarding your dental infection, I have sent a prescription for Augmentin to your pharmacy. Please complete this entire course. You can take ibuprofen 200 mg, 3 tablets (600mg) every 6-8 hours as needed for pain, in addition to Tylenol 500 mg, 2 tablets (1,000mg) every 4-6 hours as needed for pain, but not to exceed 3 doses daily (3,000mg).? I have also sent a prescription for oxycodone to use as needed for pain that is unrelieved by acetaminophen / ibuprofen. Oxycodone is a narcotic medication it may make you drowsy and it can be addictive. Please use this sparingly. Do not drive, drink alcohol, or operate machinery while taking this medication. I have also sent a prescription for chlorhexidine mouthwash to your pharmacy please use this as prescribed. Is important that you follow-up with your dental provider for further management. As discussed, your blood pressure today was significantly elevated. It is important to take your blood pressure medication as prescribed. And rationing dosages of your blood pressure medication is not recommended. High blood pressure that is left untreated over time with you at an increased risk for severe complications including but not limited to stroke, heart attack, and even . I have sent a refill of your medication to the pharmacy, it is important that you follow-up with your primary care provider. Prescriptions: New amoxicillin-pot clavulanate 875-125 mg tablet 1 tab PO BID Qty: 13 0RF oxycodone 5 mg tablet 5 mg PO Q6H PRN (Reason: pain) Qty: 10 0RF Rx Instructions: Partial Fill upon patient request. chlorhexidine gluconate 0.12 % mouthwash 15 ml mucous membrane DAILY Qty: 118 0RF lisinopril-hydrochlorothiazide 20-25 mg tablet 1 tab PO DAILY Qty: 30 0RF No Action lisinopril-hydrochlorothiazide 20-25 mg tablet 1 tab PO DAILY Triumeq 600-50-300 mg tablet 1 tab PO DAILY albuterol sulfate 2.5 mg /3 mL (0.083 %) solution for nebulization inhalation omeprazole 40 mg capsule,delayed release(DR/EC) 1 cap PO DAILY albuterol sulfate 90 mcg/actuation HFA aerosol inhaler inhalation topiramate 50 mg tablet 1 tab PO BID budesonide-formoterol [Symbicort] 160-4.5 mcg/actuation HFA aerosol inhaler 2 puff INHALATION BID acetaminophen 325 mg Tablet 650 mg PO Q6H PRN (Reason: Pain, Mild (Pain Scale 1-3)) 30 Days Qty: 240 0RF amoxicillin-pot clavulanate [Augmentin] 500-125 mg tablet 1 tab PO Q12H 10 Days Qty: 20 0RF Referrals: Physician,Unknown J [Primary Care Provider] -
[2023-02-13 12:40] VITALS: BP 177/115; PULSE 85; RESP 15; TEMP 36.3; O2SAT 97
[2023-02-13 13:31] VITALS: BP 171/100
== END 2023-02-13 13:57 | disposition home or self-care (01) ==
PROVIDERS: Emergency Provider Student in an Organized Health Care Education/Training Program
DX: I16.0 Hypertensive urgency (principal); K08.89 Other specified disorders of teeth and supporting structures; B20 Human immunodeficiency virus [HIV] disease; I10 Essential (primary) hypertension; F17.210 Nicotine dependence, cigarettes, uncomplicated; Z79.899 Other long term (current) drug therapy
CPT/HCPCS: 99283; 99284

== ENCOUNTER 2023-09-03 14:26 | Emergency (ER) | payer OTHER, SELFPAY ==
[2023-09-03 14:41] VITALS: BP 225/128; PULSE 97; RESP 18; TEMP 37.1; O2SAT 98; BMI 41.0
--- NOTE | 2023-09-03 14:41 | ED.GENADULT ---
HPI - General Adult General Chief complaint: Skin/Abscess/Foreign Body Stated complaint: cyst infection? Time Seen by Provider: 09/03/23 17:04 Source: patient Mode of arrival: ambulatory Limitations: no limitations History of Present Illness HPI narrative: 38-year-old male with a history of hypertension, asthma, HIV disease-off medications for 1 year, GERD who presents emergency department for evaluation of abscess and cellulitis to the left lower abdomen area. The patient states that he noted a pimple on his left lower abdominal area approximately 1 week prior. He states that he tried to squeeze the pimple but it did not popped he states since that time he has had redness and swelling in this area . He states he did squeeze the area again and got some blood out of the temporal area he states that since that time the center his turned black. He states that he is having pain in the area of the cellulitis. He denied fever but did have chills. He states he has had fatigue. He has had no nausea or vomiting. He does have diarrhea 3-4 episodes per day but this is chronic Patient states he has not been compliant with his antihypertensive medications or his HIV medications, states he has been off these medications for 1 year secondary to losing his PCP and moving to the [facility]. Related Data Home Medications Medication Instructions Recorded Confirmed abacavir 600 mg-dolutegravir 50 1 tab PO DAILY 03/26/22 03/26/22 mg-lamivudine 300 mg tablet (Triumeq) albuterol sulfate 2.5 mg/3 mL mg inhalation 03/26/22 (0.083 %) solution for nebulization albuterol sulfate 90 mcg/actuation inhalation 03/26/22 aerosol inhaler budesonide-formoterol HFA 160 2 puff inhalation BID 03/26/22 03/26/22 mcg-4.5 mcg/actuation aerosol inhaler (Symbicort) lisinopril 20 1 tab PO DAILY 03/26/22 03/26/22 mg-hydrochlorothiazide 25 mg tablet omeprazole 40 mg capsule,delayed 1 cap PO DAILY 03/26/22 release topiramate 50 mg tablet 1 tab PO BID 03/26/22 Previous Rx's Medication Instructions Recorded acetaminophen 325 mg tablet 650 mg (2 x 325 mg) PO Q6H PRN 03/27/22 Pain, Mild (Pain Scale 1-3) 30 days #240 tabs amoxicillin 500 mg-potassium 1 tab PO Q12H 10 days #20 tabs 03/27/22 clavulanate 125 mg tablet (Augmentin) amoxicillin 875 mg-potassium 1 tab PO BID #13 tabs 02/13/23 clavulanate 125 mg tablet chlorhexidine gluconate 0.12 % 15 ml mucous membrane DAILY #118 mL 02/13/23 mouthwash lisinopril 20 1 tab PO DAILY #30 tabs 02/13/23 mg-hydrochlorothiazide 25 mg tablet oxycodone 5 mg tablet 5 mg PO Q6H PRN pain #10 tabs 02/13/23 cephalexin 500 mg capsule 500 mg PO QID 7 days #28 caps 09/03/23 doxycycline hyclate 100 mg tablet 100 mg PO Q12H 7 days #14 tabs 09/03/23 lisinopril 20 1 tab PO DAILY 1 month #30 tabs 09/03/23 mg-hydrochlorothiazide 25 mg tablet Allergies Allergy/AdvReac Type Severity Reaction Status Date / Time morphine AdvReac Itching Verified 09/03/23 14:46 Review of Systems Review of Systems: Yes all other systems are reviewed and are negative PMFSH Past Medical History Medical History HIV (human immunodeficiency virus infection) Asthma GERD (gastroesophageal reflux disease) Hypertension Social History Social History Patient Tobacco Use Status: Current everyday Tobacco user Tobacco use type: Cigarette Cigarette Packs Per Day: 0.25 Cigarettes Per Day: 5.0 Second Hand Smoke Exposure: No Advance Directives: No Advance Directives Information Provided: No service: No Current occupational status: employed Physical Exam ED Vital Signs: Vital Signs - 24 hr 09/03/23 14:41 Temperature 98.8 F Pulse Rate 97 Respiratory Rate 18 Blood Pressure 225/128 H Pulse Oximetry 98 Oxygen Delivery Method Room Air BMI result Body Mass Index 41.0 Vital signs did reveal an elevated blood pressure of 225/128 repeat blood pressure at the time of discharge is 191/102-this is consistent with his essential hypertension being noncompliant with his medications Exam General: Awake, alert in no distresss Skin: Patient has a large area of erythema to his left lower abdomen, this was outlined with a blue marker pen (see picture below). The erythema is warm to the touch. The patient had a black eschar with surrounding induration with no flocculence. No evidence for abscess at this time Psych: Pleasant, cooperative Course Course Course Narrative: RME performed by Ludy Jackman PA-C. Patient is a 38 year old assigned male at presenting to the emergency department with an abdominal abscess. Patient has had this for 3-4 days and attempted to pop it on his own. Detailed physical exam and review of systems are deferred to the log handler. Labs ordered. Patient placed back in the waiting room pending room availability and results. Medical Decision Making Medical Decision Making [facility] Narrative: 38-year-old male with a history of hypertension, asthma, HIV disease-off medications for 1 year, GERD who presents emergency department for evaluation of abscess and cellulitis to the left lower abdomen area, started as a small pimple which the patient squeezed and now he has a large area of erythema with a black eschar where the pimple was originally. The patient had subjective chills and fatigue but no documented fever. The patient has been noncompliant with his HIV medications and his antihypertension medications for 1 year secondary to losing his PCP and moving to the [facility] Differential diagnosis: Includes but is not limited to cellulitis, abscess, immunocompromise secondary to HIV disease, uncontrolled hypertension secondary to noncompliant 17:52 My interpretation patient's laboratory evaluation is as follows: WBC was low 4700-most likely 2nd HIV disease. Mild normocytic anemia with an H&H of 13.1 and 37.7-again most likely secondary to HIV disease. AST and ALT were elevated 88 and 120. Lactic acid was normal which is reassuring. CRP and ESR were slightly elevated at 1.26 and 18-this is consistent with his cellulitis The patient's presentation is consistent with a cellulitis with an indurated area but no abscess that can be drained at this time. I did discuss this with the patient. Started on Keflex 500 mg 4 times a day for 7 days and doxycycline 100 mg hours for 7 to give him MRSA coverage as well pain. Patient was advised to take Tylenol ibuprofen for pain. He was advised to use warm compresses 4 times a day to help increase the blood flow and help the healing process. The patient was restarted on his 20 mg/hydrochlorothiazide 25 mg daily for his hypertension-he was given 1 month supply Patient was given referral numbers for PCPs as well as referral number to our infectious provider, Dr. Whitten to help manage his HIV disease Admission/Observation Consideration of admission/observation: Escalation of care including admission/observation considered Lab Data MDM Lab Attestation statement: I reviewed the patient's lab results. 09/03/23 15:10 09/03/23 15:10 Labs: Lab Results 09/03/23 Range/Units 15:10 WBC 4.7 L (4.8-10.8) X10*3/uL RBC 4.34 L (4.60-5.80) X10*6/uL Hgb 13.1 L (14.0-18.0) g/dl Hct 39.2 L (42.0-52.0) % MCV 90.3 (80.0-98.0) fL MCH 30.2 (27.0-33.0) pg MCHC 33.4 (31.0-36.0) g/dl RDW 12.9 (11.0-16.0) % Plt Count 212 D (160-400) X10*3/uL MPV 9.0 L (9.4-12.4) fL Immature Gran % (Auto) 0.2 (0.0-0.4) % Neut % (Auto) 46.7 (45-73) % Lymph % (Auto) 32.3 (20-40) % Treasure % (Auto) 15.3 H (2-11) % Eos % (Auto) 5.1 H (0-4) % Baso % (Auto) 0.4 (0-2) % Lymph # (Auto) 1.5 (1.2-4.9) X10*3/uL Treasure # (Auto) 0.7 (0.1-1.2) X10*3/uL Eos # (Auto) 0.2 (0.0-0.4) X10*3/uL Baso # (Auto) 0.0 (0.0-0.2) X10*3/uL Abs Immat Gran (auto) 0.01 (0.00-0.03) X10*3/uL Absolute Neuts (auto) 2.2 (2.0-8.3) x10*3/uL Absolute Nucleated RBC 0.000 (0.0-0.012) X10*3/uL Nucleated RBC % (auto) 0.0 (0.0-0.2) /100WBC ESR 18 H (0-15) MM/HR Sodium 141 (135-145) mmol/L Potassium 3.3 (3.3-5.1) mmol/L Chloride 105 (96-108) mmol/L Carbon Dioxide 30 H (22-29) mmol/L Anion Gap 9 L (12-20) BUN 14 (9-16) mg/dL Creatinine 0.83 (0.5-1.4) mg/dL Estim Creat Clear Calc 153.6 Estimated GFR > 60 Random Glucose 106 (60-115) mg/dL Lactic Acid 1.0 (0.5-2.0) mmol/L Calcium 9.4 (8.4-10.2) mg/dL Magnesium 1.8 (1.6-2.6) mg/dL Total Bilirubin 0.3 (0.0-1.0) mg/dL AST 88 H (5-37) U/L ALT 120 H (0-40) U/L Alkaline Phosphatase 57 (39-117) U/L C-Reactive Protein 1.26 H (< or = 0.50) mg/dL Total Protein 7.2 (6.5-8.0) g/dL Albumin 3.4 L (3.5-5.0) g/dL Prescription Management I considered prescription management with: Antibiotic and Other (Antihypertensive medication) Discharge Plan Discharge Clinical Impression: Cellulitis of abdominal wall, Hypertension, Medical non-compliance Patient Disposition: Home, Self-Care Additional Instructions: Cellulitis Discharge Instructions You have an infection of your skin. This is called cellulitis. This is usually caused by bacteria on your skin that gets under your skin and then causes the infection. At this time, I do not think that you have an abscess (collection of pus) that needs to be cut into and drained Take Keflex 500 mg pills, 1 pill 4 times a day for 1 week. Take doxycycline 100 mg, 1 pill every 12 hours for 7 days These are antibiotic that should help your body fight off the infection. Also apply a heating pad on low or a warm compress for 15 minutes, 4-6 times a day. This will increase the blood flow to the area and will bring white blood cells to the area which will help your body fight off the infection. Take Motrin(ibuprofen) 200mg pills, 3 pills every 6 hours as needed for pain. Also take Tylenol( acetaminophen) 325 mg pills, 2 pills every 4 hours as needed for pain. If we wesley a line around the area of cellulitis, the redness should withdraw from the line in the next 1-3 days. If the redness crosses the line this is a sign that the infection is getting worse and you should see your doctor or return to the Emergency Department for a recheck. Other signs of worsening infection include fever, chills, weakness, increased pain, increased redness, increased swelling or red streaks going away from the area of infection. If you develop any of these symptoms or any other symptoms that are concerning to you, see your doctor immediately or return to the Emergency Department. Follow up with your doctor in 3 days for a recheck Please read the other printed instructions that we printed for you. Try calling the following numbers to see if you can get a primary care provider to help you with your medical problems. [facility] PCP referral line [facility] Adult primary care and family medicine [facility] We did do blood cultures on you, if you have bacteria in your blood these cultures usually come back positive in 24-48 hours in the emergency department should call you if they are positive. Prescriptions: New cephalexin 500 mg capsule 500 mg PO QID 7 Days Qty: 28 0RF doxycycline hyclate 100 mg tablet 100 mg PO Q12H 7 Days Qty: 14 0RF lisinopril-hydrochlorothiazide 20-25 mg tablet 1 tab PO DAILY 30 Days Qty: 30 0RF No Action lisinopril-hydrochlorothiazide 20-25 mg tablet 1 tab PO DAILY Triumeq 600-50-300 mg tablet 1 tab PO DAILY albuterol sulfate 2.5 mg /3 mL (0.083 %) solution for nebulization inhalation omeprazole 40 mg capsule,delayed release(DR/EC) 1 cap PO DAILY albuterol sulfate 90 mcg/actuation HFA aerosol inhaler inhalation topiramate 50 mg tablet 1 tab PO BID budesonide-formoterol [Symbicort] 160-4.5 mcg/actuation HFA aerosol inhaler 2 puff INHALATION BID acetaminophen 325 mg Tablet 650 mg PO Q6H PRN (Reason: Pain, Mild (Pain Scale 1-3)) 30 Days Qty: 240 0RF amoxicillin-pot clavulanate [Augmentin] 500-125 mg tablet 1 tab PO Q12H 10 Days Qty: 20 0RF amoxicillin-pot clavulanate 875-125 mg tablet 1 tab PO BID Qty: 13 0RF oxycodone 5 mg tablet 5 mg PO Q6H PRN (Reason: pain) Qty: 10 0RF Rx Instructions: Partial Fill upon patient request. chlorhexidine gluconate 0.12 % mouthwash 15 ml mucous membrane DAILY Qty: 118 0RF lisinopril-hydrochlorothiazide 20-25 mg tablet 1 tab PO DAILY Qty: 30 0RF Referrals: FRANCHESCA WHITTEN MD [Physician] - 2 weeks (HIV disease, off medications for 1 year, willing to restart medications)
[2023-09-03 15:16] LABS: MANUAL DIFF FLAG NO
[2023-09-03 15:18] LABS: Basophils Percent Auto 0.4 % (0-2); Eosinophils Absolute Auto 0.2 X10*3/uL (0.0-0.4); Eosinophils Percent Auto 5.1 % (0-4); Hematocrit 39.2 % (42.0-52.0); Hemoglobin 13.1 g/dl (14.0-18.0); Imm Gran Abs Auto 0.01 X10*3/uL (0.00-0.03); Imm Gran Pct Auto 0.2 % (0.0-0.4); Lymphocytes Absolute Auto 1.5 X10*3/uL (1.2-4.9); Lymphocytes Percent Auto 32.3 % (20-40); Mean Corpuscular HGB Conc 33.4 g/dl (31.0-36.0); Mean Corpuscular Hemoglobin 30.2 pg (27.0-33.0); Mean Corpuscular Volume 90.3 fL (80.0-98.0); Monocytes Absolute Auto 0.7 X10*3/uL (0.1-1.2); Monocytes Percent Auto 15.3 % (2-11); Neutrophils Absolute Auto 2.2 x10*3/uL (2.0-8.3); Neutrophils Percent Auto 46.7 % (45-73); Platelet Count 212 X10*3/uL (160-400); Red Blood Count 4.34 X10*6/uL (4.60-5.80); Red Cell Distribution Width 12.9 % (11.0-16.0); White Blood Count 4.7 X10*3/uL (4.8-10.8)
[2023-09-03 15:37] LABS: Alanine Aminotransferase 120 U/L (0-40); Albumin Level 3.4 g/dL (3.5-5.0); Alkaline Phosphatase 57 U/L (39-117); Anion Gap 9 (12-20); Aspartate Amino Transferase 88 U/L (5-37); Bilirubin Total 0.3 mg/dL (0.0-1.0); Blood Urea Nitrogen 14 mg/dL (9-16); C Reactive Protein 1.26 mg/dL (< or = 0.50); Calcium 9.4 mg/dL (8.4-10.2); Carbon Dioxide 30 mmol/L (22-29); Chloride 105 mmol/L (96-108); Creatinine Clr Calc Pharmacy 153.6; Estimated Glomerular Filt Rate > 60; Glucose Random 106 mg/dL (60-115); Magnesium 1.8 mg/dL (1.6-2.6); Potassium 3.3 mmol/L (3.3-5.1); Sodium 141 mmol/L (135-145); Total Protein 7.2 g/dL (6.5-8.0)
[2023-09-03 15:56] LABS: Erythrocyte Sedimentation Rate 18 MM/HR (0-15)
[2023-09-03 17:25] VITALS: BP 191/102; PULSE 98; RESP 16; TEMP 36.6; O2SAT 97
--- NOTE | 2023-09-03 17:28 | MHC.EDTECH ---
THIS PCT JUST ASSUMED CARE OF PT ,VITALS TAKEN ,RN AWARE OF PT HIGH BP ,PT WAS HOOKED UP TO STAFF PHARMACIST .
[2023-09-03] MEDS: Doxycycline Monohydrate 100 MG CAPSULE PO (18:14)
[2023-09-03] MEDS: cephALEXin 500 MG CAPSULE PO (18:14)
== END 2023-09-03 18:23 | disposition home or self-care (01) ==
PROVIDERS: Physician Assistant Medical; Emergency Provider Emergency Medicine Emergency Medical Services
DX: L03.311 Cellulitis of abdominal wall (principal); I10 Essential (primary) hypertension; Z79.899 Other long term (current) drug therapy; Z91.148 Patient's other noncompliance with medication regimen for other reason; Z21 Asymptomatic human immunodeficiency virus [HIV] infection status
CPT/HCPCS: 36415; 80053; 83605; 83735; 85025; 85652; 86140; 87040; 99283

== ENCOUNTER 2023-09-17 10:14 | Outpatient (AMB) | payer OTHER, SELFPAY ==
--- NOTE | 2023-09-17 10:55 | AM.OFFWIN_ITS ---
Intake Vital Signs 09/17/23 10:56 Height 5 ft 8 in Weight 288 lb 2 oz BMI 43.8 BP 198/110 H Blood Pressure Location Lt brachial Position Sitting Pulse 96 Pulse Source Pulse Oximeter Temp 98.1 F Temp Source Oral Pulse Oximetry (%) 96 Oxygen Delivery Method Room Air Intake Visit Reasons: EST/lower left abd abcess (lobby) Intake Note: pt is here for c./o left lower abd abscess, drainage, puss possible infection for about 2 weeks Patient Tobacco Use Status: Current everyday Tobacco user Allergies morphine Adverse Reaction (Verified 09/17/23 10:58) Itching Do you need a note to return to daycare/school/sports/work: Yes HPI HPI Comments History of Present Illness Details This is a 38-year-old male with history of HIV off of medications, essential hypertension noncompliant with medications who presented to the walk- in clinic for a wound check. Patient was seen in the emergency room on 09/03/2023 for an area of erythema/swelling to his left lower abdomen. Patient was diagnosed with cellulitis of the left lower abdomen and he was noted to have an area of black eschar. Patient was discharged on p.o. doxycycline 100 mg twice daily x7 days as well as p.o. cephalexin 4 times daily x7 days. Patient states he is taking these medications as prescribed; however, he then states that he still has several days/pills left of both medications despite prescription only being for 1 week and it has been 2 weeks since he was last seen. For this reason, it appears that patient is extremely noncompliant with his antibiotics. He came into the walk-in clinic today because there is now an ulcerated area to his left lower abdomen with purulent drainage. The surroundin g erythema has improved. He denies any fevers or chills. He denies any abdominal pain or nausea/vomiting/diarrhea. [facility] Medical History HIV (human immunodeficiency virus infection) Asthma GERD (gastroesophageal reflux disease) Hypertension Social History Patient Tobacco Use Status: Current everyday Tobacco user Tobacco use type: Cigarette Cigarette Packs Per Day: 0.25 Cigarettes Per Day: 5.0 Second Hand Smoke Exposure: No service: No Current occupational status: employed Review of Systems Const All systems reviewed & are unremarkable except as noted in HPI and below Reports no additional complaints Eyes Reports no additional complaints ENT Reports no additional complaints Card Reports no additional complaints Resp Reports no additional complaints GI Reports no additional complaints Reports no additional complaints Musc Reports no additional complaints Skin/Breast Reports system reviewed and no additional complaints, except as documented Neuro Reports no additional complaints Psych Reports no additional complaints Endo Reports no additional complaints Radames/Lymph Reports no additional complaints Aller/Immun Reports no additional complaints Physical Exam Vital Signs: Last Vital Signs Temp 98.1 F 09/17/23 10:56 Pulse 96 09/17/23 10:56 BP 198/110 H 09/17/23 10:56 Pulse Ox 96 09/17/23 10:56 Oxygen Delivery Method Room Air 09/17/23 10:56 BMI result Body Mass Index 43.8 Const Other: Vital signs reviewed. Constitutional: Non-toxic appearing. No acute distress. Well-developed and well-nourished. HEENT: Normocephalic and atraumatic. Skin: There is an ulcerated area to his left lower abdomen with some healthy granulation tissue but also some purulent drainage with minimal surrounding erythema. There is no induration/fluctuance to the area. Neck: Full and painless range of motion. No cervical lymphadenopathy. Cardio: Regular rate and rhythm. No murmurs, gallops, or rubs. No lower extremity edema. No JVD. Pulmonary: No respiratory distress. No accessory muscle usage. Gastrointestinal: Soft, nontender, and nondistended in all 4 quadrants. Musculoskeletal: Normal range of motion in joints throughout the body. No deformity or other signs of injury. Neuro: Alert and oriented x4. Cranial nerves 2-12 grossly intact. No focal deficits appreciated. Psych: Normal mood and affect. Assessment & Plan Assessment & Plan (1) Abdominal wall cellulitis: Code(s): L03.311 - Cellulitis of abdominal wall Plan: This is a 38-year-old male with past medical history significant for HIV, uncontrolled hypertension, recently diagnosed abdominal wall cellulitis noncompliant with his doxycycline/cephalexin who presented to the walk-in clinic with worsening purulent drainage from the area but improved erythema. On physical examination, there is an ulcerated area to his left lower abdomen with healthy granulation tissue but some purulent drainage and minimal surrounding erythema. When compared to the photo from the emergency room documentation on 09/03/2023, the surrounding erythema has significantly improved despite noncompliance with his antibiotics but there is now an area of ulceration with some purulent drainage concerning for an infected wound. I explained to the patient the importance of taking antibiotics as prescribed especially given his immunocompromised status in the setting of HIV. I recommended that the patient proceed to the emergency room as he has been taking antibiotics (though not as prescribed) and there continues to be an infection/purulent drainage and he may require further workup and IV antibiotics. I explained that an untreated infection can lead to a bloodstream infection as well as sepsis especially in the setting of his immunocompromised status. Patient verbalized understanding; however, he prefers not to proceed to the emergency room at this time. I have changed his antibiotics to p.o. trimethoprim/sulfamethoxazole 800/160 mg twice daily times 10 days as patient will hopefully be more compliant with solo antibiotic therapy. He was instructed to have a very low threshold to proceed to the emergency room and he should proceed directly to the emergency room if he were to develop any nausea/vomiting, fever/chills, worsening erythema, or worsen ing purulent drainage. Patient verbalizes understanding and he is in agreement with the plan. (2) Uncontrolled hypertension: Code(s): I10 - Essential (primary) hypertension Plan: Patient was also found to be hypertensive today with a blood pressure of 198/110, which appears to be consistent with his prior blood pressures. Patient is supposed to be taking lisinopril/hydrochlorothiazide for blood pressure management; however, he ran out. He did have a prescription sent to his pharmacy from the emergency room on 09/03/2023 but states that the medicine was not ready yet. 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 He was educated on the risks of elevated blood pressure such as heart disease, strokes etc. 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 Coding Level of Care Code Est Pt Level 3 (91721) Diagnoses Abdominal wall cellulitis L03.311 Uncontrolled hypertension I10
[2023-09-17 10:56] VITALS: BP 198/110; PULSE 96; TEMP 36.7; O2SAT 96; BMI 43.8
== END 2023-09-17 11:54 | disposition home or self-care (01) ==
PROVIDERS: Visit Provider Physician Assistant Medical
DX: L03.311 Cellulitis of abdominal wall (principal); I10 Essential (primary) hypertension
CPT/HCPCS: 99213

== ENCOUNTER 2023-09-23 11:03 | Outpatient (AMB) | payer OTHER, SELFPAY ==
[2023-09-23 11:06] VITALS: BP 144/86; PULSE 108; O2SAT 95; BMI 43.8
--- NOTE | 2023-09-23 11:06 | MHC.PC.OV ---
Vital Signs 09/23/23 11:06 Height 5 ft 8 in Weight 288 lb 6 oz BMI 43.8 BP 144/86 H Blood Pressure Location Rt brachial Position Sitting Pulse 108 H Pulse Source Pulse Oximeter Pulse Oximetry (%) 95 Oxygen Delivery Method Room Air Intake Visit Reasons: Est Care/Cyst/clear to go back to work-Ok DR. Cee Intake Note: Pt is here today to discuss paperwork to go back to work. Allergies morphine Adverse Reaction (Verified 09/23/23 11:30) Itching bee sting Allergy (Intermediate, Uncoded 09/23/23 11:31) Anaphylaxis Medication List - Last Reconciled 09/23/23 by CAYDEN Jordan lisinopril-hydrochlorothiazide 20-12.5 mg 1 tab PO DAILY sulfamethoxazole-trimethoprim 800-160 mg 1 tab PO BID Tobacco use date assessed: 09/23/23 Dental Screening Dental Screen Date: 09/23/23 Did you have a dental visit in the last 12 months?: Yes Did you have a dental problem in the last 6 months where you did not have access to dental care?: No Was dental information given to patient?: Patient has dentist HPI HPI Comments History of Present Illness Details Patient is a 38-year-old male here to establish care. He was recently seen in our walk-in clinic 5 days prior for ulcer and cellulitis in the left lower quadrant. The patient has been taking Bactrim, with good effect. The patient states that the wound has improved over the past couple of days, his pain has reduced, there is no more drainage from the area. He denies recent fevers, numbness, nausea, vomiting, diarrhea. Patient is instructed to finish the course of those antibiotics. He has a past medical history significant for hypertension, anxiety, HIV, asthma, GERD. He has a history of both colonoscopy and endoscopy, will obtain records to see when next procedures do. Patient has been off his HIV medication for several years, will draw appropriate labs and refer to Infectious Disease. [facility] Medical History (Updated 09/23/23 @ 12:35 by CAYDEN Jordan) HIV (human immunodeficiency virus infection) Asthma GERD (gastroesophageal reflux disease) Hypertension Surgical History H/O endoscopy Family History Maternal Grandmother Breast cancer Social History Housing: Apartment Patient Tobacco Use Status: Current everyday Tobacco user Tobacco use type: Cigarette Cigarette Packs Per Day: 0.25 Cigarettes Per Day: 5.0 e-Cigarette/Vaping Use: Never Used Second Hand Smoke Exposure: No service: No Current occupational status: employed Cognitive needs: No Hearing needs: No Vision needs: No Questionnaire PHQ-9 Over the last 2 weeks, how often have you been bothered by any of the following problems? 1. Little interest or pleasure in doing things: not at all 2. Feeling down, depressed, or hopeless: several days 3. Trouble falling or staying asleep, or sleeping too much: not at all 4. Feeling tired or having little energy: several days 5. Poor appetite or overeating: more than half the days 6. Feeling bad about yourself - or that you are a failure or have let yourself or your family down: not at all 7. Trouble concentrating on things, such as reading the newspaper or watching television: not at all 8. Moving or speaking so slowly that other people could have noticed. Or the opposite - being so fidgety or restless that you have been moving around a lot more than usual: not at all 9. Thoughts that you would be better off or of hurting yourself in some way: not at all Total score: 4 Depression Screening Interpretation: Negative Depression Screening Done: Yes 40855 - PHQ-9 Billing: Yes Source: Developed by Drs. Carter Lujan, Katy Marie, Raul Sellers and colleagues, with an educational altaf from [employer]: turn off the lights. Thrive Questionnaire Date Thrive assessed: 09/23/23 I am a: Patient What is your living situation today?: I have a steady place to live Within the past 12 months, did the food you bought not last and you didn't have the money to get more?: Never true Within the past 12 months, did you worry whether your food would run out before you got money to buy more?: Never true Do you have trouble paying for medicines?: No Do you have trouble getting transportation to medical appointments?: No Do you have trouble paying your heating and electricity bill?: No Do you have trouble taking care of your child, family member or friend?: No Do you have trouble with day-to-day activities such as bathing, preparing meals, shopping, managing finances, etc.?: No Are you currently unemployed and looking for a job?: No Are you interested in more education?: No Please select the resources that you would like help with: None Currently or been in a relationship where the following occur: no concerns reported THRIVE Score: 0 AUDIT C Alcohol Use Questionnaire (AUDIT-C) 1. How often do you have a drink containing alcohol?: Monthly or less 2. How many drinks containing alcohol do you have on a typical day when you are drinking?: 1 or 2 3. How often do you have six or more drinks on one occasion?: Never Total Score: 1 Score Reviewed/Action Taken: Yes SHARRI-7 AMB Questionnaire SHARRI-7 Date SHARRI - 7 assessed: 09/23/23 Feeling nervous, anxious, or on edge: 2 = More than half the days Not being able to stop or control worryin = More than half the days Worrying too much about different things: 2 = More than half the days Trouble relaxin = Several days Being so restless that it is hard to sit still: 2 = More than half the days Becoming easily annoyed or irritable: 0 = Not at all Feeling afraid as if something awful might happen: 0 = Not at all Total SHARRI-7 score (0-4 normal; 5-9 mild; 10-14 moderate; 15-21 severe): 9 Source: Developed by Drs. Carter Lujan, Katy Marie, Raul Sellers and colleagues, with an educational altaf from [employer]: turn off the lights. SHARRI-7 Assessment Billing SHARRI-7 Assessment Tool: SHARRI-7 Assessment 06938 Review of Systems Const Details: Constitutional : No Weight loss, No Fever, No Chills, No Fatigue, No Malaise Cardiovascular : No Chest Pain, No SOB, No Dyspnea on Exertion, No Orthopnea, No Edema, No Palpitations Respiratory : No Cough, No Sputum, No Wheezing Gastrointestinal : No Nausea, No Vomiting, No Diarrhea, No Constipation, No abdominal Pain, No Hematochezia, No Melena Genitourinary : No Dysuria, No Urinary Frequency, No Hematuria, Musculoskeletal : No joint pain, No Myalgias, No Joint Swelling Skin : Admits wound on LLQ, superficial. Admits pain has improved over the past 5 days. Neuro : No Weakness, No Numbness, No Dizziness, No Headache Psych : Admits some Anxiety/Panic, No Depression. Denies SI/HI. Heme/Lymph: No Bruising, No Bleeding,No Lymphadenopathy Endocrine : No Polyuria, No Polydipsia All other systems reviewed and are negative Physical exam (Primary Care) Vital Signs: Last Vital Signs Pulse 108 H 09/23/23 11:06 BP 144/86 H 09/23/23 11:06 Pulse Ox 95 09/23/23 11:06 Oxygen Delivery Method Room Air 09/23/23 11:06 Care Plan Goal for BP management: Vital signs reviewed and stable. Patient has been educated to take blood pressure measurements at home Next steps: Patient states he sometimes forgets to take his medication. He is not taking any medications yet today BMI result Body Mass Index 43.8 Tobacco/Smoking Status: Tobacco use Status Tobacco use date assessed 09/23/23 09/23/23 11:14 Patient Tobacco Use Status Current everyday Tobacco 09/23/23 11:14 Tobacco use type Cigarette 09/23/23 11:14 e-Cigarette/Vaping Use Never Used 09/23/23 11:14 Depression Screening Interpretation: Negative Currently or been in a relationship where the following occur: no concerns reported Const Other: Appearance: Alert.? Oriented X3.? No acute distress.? Head: Normocephalic, atraumatic, CVS: Normal heart rate and rhythm.? Pulses normal.? Respiratory: No respiratory distress.? Breath sounds normal.? Skin: Wound left lower quadrant, little erythema, no purulent draingage. No escar. +granulated tissue. Neuro: Oriented X 3.? No motor deficit.? No sensory deficit. CN 2-12 intact Assessment and Plan Assessment & Plan (1) HIV (human immunodeficiency virus infection): Comment: Patient has history of HIV, has not taken medications in 2 years. Will refer to Infectious Disease. Will draw HIV labs. Code(s): B20 - Human immunodeficiency virus [HIV] disease Qualifiers: HIV symptom status: unspecified Qualified Code(s): B20 - Human immunodeficiency virus [HIV] disease Plan: Follow-up with infectious disease (2) Anxiety: Comment: Patient states he is having increased anxiety, but says that is due to him being out of work for the past couple of weeks. Will fill out paperwork for patient to return to work. He met with community health navigator today to discuss establishing care with therapist. Patient agrees to this plan. Code(s): F41.9 - Anxiety disorder, unspecified Plan: Patient will establish care with therapist Plan Patient will follow-up in physical exam 3-4 months Orders: Orders Comprehensive Met. Panel Today Z91.89 - Other specified personal risk factors, not elsewhere classified Lipid Panel Today Z13.220 - Encounter for screening for lipoid disorders Vitamin B6 Today Z13.21 - Encounter for screening for nutritional disorder Vitamin B12 Today Z13.21 - Encounter for screening for nutritional disorder TSH reflex Free T4 Today Z13.29 - Encounter for screening for other suspected endocrine disorder Hemoglobin A1c Today Z13.1 - Encounter for screening for diabetes mellitus Complete Blood Count Auto Diff Today B20 - Human immunodeficiency virus [HIV] disease HIV Ab/Ag Today B20 - Human immunodeficiency virus [HIV] disease Magnesium Today Z91.89 - Other specified personal risk factors, not elsewhere classified Vitamin D 25-OH (D2 and D3) Today Z13.21 - Encounter for screening for nutritional disorder UA CC w/rflx Micro + Cult Today Z13.89 - Encounter for screening for other disorder Referrals Infectious Disease Referral B20 - Human immunodeficiency virus [HIV] disease Coding Level of Care Code Est Pt Level 3 (72180) Diagnoses HIV infection, unspecified symptom status B20 HIV symptom status: unspecified Anxiety F41.9 Additional Codes SHARRI-7 Assessment Billing - SHARRI-7 Assessment Tool: SHARRI-7 Assessment 77741 ([id number]) Time Spent (min) 45
== END 2023-09-23 12:27 | disposition home or self-care (01) ==
PROVIDERS: Visit Provider Nurse Practitioner Primary Care
DX: B20 Human immunodeficiency virus [HIV] disease (principal); F41.9 Anxiety disorder, unspecified
CPT/HCPCS: 99213

== ENCOUNTER 2023-09-23 12:20 | Outpatient (REF) | payer OTHER, SELFPAY ==
[2023-09-23 15:54] LABS: MANUAL DIFF FLAG NO
[2023-09-23 16:00] LABS: Appearance Urine Clear; Color Urine Dark Yellow; Glucose Urine UA Negative (Negative); Leukocyte Esterase Urine Negative (Negative); Nitrite Urine Negative (Negative); PH 5.5 (5.0-9.0); Urine Blood Negative (Negative); Urine Ketones Negative (Negative); Urine Protein Trace mg/dL (Neg-Trace)
[2023-09-23 16:00] LABS: Basophils Percent Auto 0.6 % (0-2); Eosinophils Absolute Auto 0.2 X10*3/uL (0.0-0.4); Eosinophils Percent Auto 5.2 % (0-4); Hematocrit 49.1 % (42.0-52.0); Hemoglobin 16.1 g/dl (14.0-18.0); Imm Gran Abs Auto 0.02 X10*3/uL (0.00-0.03); Imm Gran Pct Auto 0.4 % (0.0-0.4); Lymphocytes Absolute Auto 2.1 X10*3/uL (1.2-4.9); Lymphocytes Percent Auto 46.2 % (20-40); Mean Corpuscular HGB Conc 32.8 g/dl (31.0-36.0); Mean Corpuscular Hemoglobin 29.8 pg (27.0-33.0); Mean Corpuscular Volume 90.8 fL (80.0-98.0); Mean Platelet Volume 9.7 fL (9.4-12.4); Monocytes Absolute Auto 0.7 X10*3/uL (0.1-1.2); Monocytes Percent Auto 14.9 % (2-11); Neutrophils Absolute Auto 1.5 x10*3/uL (2.0-8.3); Neutrophils Percent Auto 32.7 % (45-73); Platelet Count 225 X10*3/uL (160-400); Red Blood Count 5.41 X10*6/uL (4.60-5.80); Red Cell Distribution Width 12.7 % (11.0-16.0); White Blood Count 4.6 X10*3/uL (4.8-10.8)
[2023-09-23 16:12] LABS: Estimated Average Glucose 91 mg/dL; Hemoglobin A1c % 4.8 % (<6.0)
[2023-09-23 16:19] LABS: Alanine Aminotransferase 364 U/L (0-40); Albumin Level 4.2 g/dL (3.5-5.0); Alkaline Phosphatase 66 U/L (39-117); Anion Gap 16 (12-20); Aspartate Amino Transferase 236 U/L (5-37); Bilirubin Total 0.7 mg/dL (0.0-1.0); Blood Urea Nitrogen 17 mg/dL (9-16); Calcium 9.7 mg/dL (8.4-10.2); Carbon Dioxide 25 mmol/L (22-29); Chloride 102 mmol/L (96-108); Cholesterol 160 mg/dL (<200); Estimated Glomerular Filt Rate > 60; Glucose Random 105 mg/dL (60-115); HDL Cholesterol 40 mg/dL (>40); LDL Cholesterol Calculated 98 mg/dL (<100); Magnesium 1.9 mg/dL (1.6-2.6); Potassium 3.8 mmol/L (3.3-5.1); Sodium 139 mmol/L (135-145); Total Protein 8.5 g/dL (6.5-8.0); Triglycerides 112 mg/dL (<150)
[2023-09-23 16:35] LABS: TSH reflex Free T4 1.16 uIU/mL (0.32-4.0)
[2023-09-23 16:37] LABS: Vitamin B12 510 pg/mL (200-900)
[2023-09-24 09:52] LABS: HIV Num 2 873.48 S/CO
[2023-09-24 09:53] LABS: HIV AB/AG Reactive (Nonreactive)
[2023-09-27 08:55] LABS: HIV 2 Antibody NEGATIVE
[2023-09-27 08:56] LABS: HIV 1 Antibody POSITIVE
[2023-09-27 15:47] LABS: Vitamin D 25-OH, D2 <4 ng/mL; Vitamin D 25-OH, D3 6 ng/mL; Vitamin D 25-OH, Total 6 ng/mL (30-100)
== END 2023-09-23 12:21 | disposition home or self-care (01) ==
LOC: HO.HMGCLDS 12:20
PROVIDERS: PCP Nurse Practitioner Primary Care; Visit Provider Nurse Practitioner Primary Care
DX: B20 Human immunodeficiency virus [HIV] disease (principal); Z13.220 Encounter for screening for lipoid disorders; Z13.21 Encounter for screening for nutritional disorder; Z13.89 Encounter for screening for other disorder; Z13.29 Encounter for screening for other suspected endocrine disorder; Z91.89 Other specified personal risk factors, not elsewhere classified; Z13.1 Encounter for screening for diabetes mellitus
CPT/HCPCS: 36415; 80053; 80061; 81003; 82306; 82607; 83036; 83735; 84207; 84443; 85025; 86701; 86702; 87389

== ENCOUNTER 2023-10-08 14:45 | Outpatient (AMB) | payer OTHER, SELFPAY ==
[2023-10-08 14:47] VITALS: BP 130/88; PULSE 90; O2SAT 97; BMI 43.2
--- NOTE | 2023-10-08 14:47 | MHC.PC.OV ---
Vital Signs 10/08/23 14:47 Height 5 ft 8 in Weight 284 lb 4 oz BMI 43.2 BP 130/88 Blood Pressure Location Rt brachial Position Sitting Pulse 90 Pulse Source Pulse Oximeter Pulse Oximetry (%) 97 Oxygen Delivery Method Room Air Intake Visit Reasons: FMLA paper work Intake Note: Pt is here to fill out FMLA paperwork Allergies morphine Adverse Reaction (Verified 10/08/23 15:25) Itching bee sting Allergy (Intermediate, Uncoded 10/08/23 15:25) Anaphylaxis Medication List - Last Reconciled 10/08/23 by CAYDEN Jordan lisinopril-hydrochlorothiazide 20-12.5 mg 1 tab PO DAILY Tobacco use date assessed: 10/08/23 HPI HPI Comments History of Present Illness Details Patient is a 38-year-old male in for a sick visit. The patient has past medical history of HIV, and a slow healing ulcer to the lower left lower quadrant of his abdomen. Patient will have referral to wound care, and Infectious Disease. His appointment with the Infectious Disease is in 6 days. Patient takes nsnx-fqu-icktxrg medicine with some relief. Denies recent fever, chest pain, numbness, shortness of breath Patient has elevated liver enzymes, will order ultrasound of upper abdomen and hepatitis panel. [facility] Medical History HIV (human immunodeficiency virus infection) Asthma GERD (gastroesophageal reflux disease) Hypertension Surgical History H/O endoscopy Family History Maternal Grandmother Breast cancer Social History Housing: Apartment Patient Tobacco Use Status: Current everyday Tobacco user Tobacco use type: Cigarette Cigarette Packs Per Day: 0.25 Cigarettes Per Day: 3 e-Cigarette/Vaping Use: Never Used Second Hand Smoke Exposure: No service: No Current occupational status: employed Cognitive needs: No Hearing needs: No Vision needs: No Questionnaire Thrive Questionnaire Date Thrive assessed: 09/23/23 SHARRI-7 AMB Questionnaire SHARRI-7 Date SHARRI - 7 assessed: 09/23/23 Source: Developed by Drs. Carter Lujan, Katy Marie, Raul Sellers and colleagues, with an educational altaf from [employer] Review of Systems Const All systems reviewed & are unremarkable except as noted in HPI and below Skin/Breast Reports wounds Physical exam (Primary Care) Vital Signs: Last Vital Signs Pulse 90 10/08/23 14:47 BP 130/88 10/08/23 14:47 Pulse Ox 97 10/08/23 14:47 Oxygen Delivery Method Room Air 10/08/23 14:47 Care Plan Goal for BP management: Vital signs reviewed stable BMI result Body Mass Index 43.2 Tobacco/Smoking Status: Tobacco use Status Tobacco use date assessed 10/08/23 10/08/23 14:54 Patient Tobacco Use Status Current everyday Tobacco 10/08/23 14:49 Tobacco use type Cigarette 10/08/23 14:49 e-Cigarette/Vaping Use Never Used 10/08/23 14:49 Thrive Assessment: Date of Thrive Assessment Date Thrive assessed 09/23/23 10/08/23 14:49 Const General: cooperative and no acute distress Nutritional Appearance: obese Limitations: no limitations Resp Auscultation: clear to auscultation bilaterally Cardio Rate: regular rate Rhythm: regular rhythm Heart sounds: S1 normal heart sound present and S2 normal heart sound present Skin Wounds: wounds noted (3 x 2 ulcer, llq. Some granuloma tissue, no discharge or e erythema.) Assessment and Plan Assessment & Plan (1) HIV (human immunodeficiency virus infection): Comment: Patient has history of HIV, has not taken medications in 2 years. Will refer to Infectious Disease. Will draw HIV labs. Code(s): B20 - Human immunodeficiency virus [HIV] disease Qualifiers: HIV symptom status: unspecified Qualified Code(s): B20 - Human immunodeficiency virus [HIV] disease (2) Visit for wound check: Comment: Patient wound appears to be healing. No signs of infection. Patient will follow-up with wound care Code(s): Z51.89 - Encounter for other specified aftercare Plan: Take your medications as prescribed. If you were prescribed antibiotics today, it is important that you take your medication to their entirety, do not skip any doses, do not finish them early. Follow-up with your primary care provider this week. Return to the emergency department with new or worsening symptoms. Such as fevers, chills, chest pain, shortness of breath, nausea, vomiting, dizziness, headache, vision changes, lethargy In case of emergency call 911 Plan Follow up in 2 months for physical exam. Orders: Orders US abdomen limited Today R74.8 - Abnormal levels of other serum enzymes Hepatitis A,B,C Profile Today R74.8 - Abnormal levels of other serum enzymes Referrals Wound Care Referral Z51.89 - Encounter for other specified aftercare Coding Level of Care Code Est Pt Level 3 (45197) Diagnoses HIV infection, unspecified symptom status B20 HIV symptom status: unspecified Visit for wound check Z51.89 Time Spent (min) 25
== END 2023-10-08 16:44 | disposition home or self-care (01) ==
PROVIDERS: PCP Nurse Practitioner Primary Care; Visit Provider Nurse Practitioner Primary Care
DX: B20 Human immunodeficiency virus [HIV] disease (principal); Z51.89 Encounter for other specified aftercare
CPT/HCPCS: 99213

== ENCOUNTER 2024-02-02 13:37 | Outpatient (AMB) | payer SELFPAY ==
--- NOTE | 2024-02-02 13:24 | MHC.OFFVIS ---
Vital Signs 02/02/24 13:52 Height 5 ft 4 in Weight 265 lb BMI 45.5 Pulse 111 H Pulse Source Pulse Oximeter Temp 98.7 F Temp Source Oral Pulse Oximetry (%) 98 Oxygen Delivery Method Room Air Intake Visit Reasons: reff [place]acon[place]/HIV need meds Allergies morphine Adverse Reaction (Verified 02/02/24 13:52) Itching bee sting Allergy (Intermediate, Uncoded 10/08/23 15:25) Anaphylaxis HPI HPI reff Laconte/HIV need meds: Details: He is a referral from Dr. Pa Darden of [facility] who he apparently cant see anymore because his transportation is a [employer] in driveway and he walked to this appointment from his residence in [place] today. He was diagnosed as HIV positive 2010 and followed by Jason Pina. Presumed source of infection is MSM. He was initially placed on Complera 12/2010 to 05/2011 and was lost to followup. He was diagnosed also with secondary syphilis at that time and treated with three doses of PCN. His CD4 count at [place] was 48 and 4% November 03 2010. He was set up initially at [facility]. 08/2013 he presented to [facility] with PJP pneumonia diagnosis and had was suspected to have syphilis again and two more doses of IM Penicillin. 11/2013 he presented to [facility] and diagnosed TIA (aphasia and right face tingling less than 24 hours).He had brain MRI unremarkable and LP to rule out neurosyphilis showed protein elevation of 132,one WBC and negative VDRL. 01/2014 he was started on Tivicay and Truvada with some mild itching on occasion patient thinks related. He had viral load undetectable and CD4 520 by report. He had anal ulcer and warts and biopsy LGSIL/PAINIII. Anoscopy with Dr Thomason and no followup. He has no rectal bleeding. He also had GERD and dysphagia. He last saw Dr Sanjay Fish in 2021. He had been on prophylactic Bactrim. 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 He has smoked and denies heavy alcohol or drugs He denies depression. He has had anal intercourse only with male and no protection and no PRep. Mother aware of diagnosis. He has rash all over body. He wants to start HAART and wants [place] eventually . [facility] Medical History (Updated 02/02/24 @ 17:05 by Yvette Whitten MD) Thrush Rash HIV (human immunodeficiency virus infection) Asthma GERD (gastroesophageal reflux disease) Hypertension Surgical History H/O endoscopy Family History Maternal Grandmother Breast cancer Social History Housing: Apartment Patient Tobacco Use Status: Current everyday Tobacco user Tobacco use type: Cigarette Cigarette Packs Per Day: 0.25 Cigarettes Per Day: 3 e-Cigarette/Vaping Use: Never Used Second Hand Smoke Exposure: No service: No Current occupational status: employed Cognitive needs: No Hearing needs: No Vision needs: No Review of Systems Const All systems reviewed & are unremarkable except as noted in HPI and below Skin/Breast Reports rash Physical Exam Vital Signs: Last Vital Signs Temp 98.7 F 02/02/24 13:52 Pulse 111 H 02/02/24 13:52 Pulse Ox 98 02/02/24 13:52 Oxygen Delivery Method Room Air 02/02/24 13:52 BMI result Body Mass Index 45.5 Const General: cooperative Orientation/consciousness: patient oriented x3 HEENT Head: Yes normal to inspection Mouth: Normal oral and palatal mucosa present Eyes General: appearance normal, both eyes and all related structures Pupils: Equal, round and reactive pupils present Resp Effort & Inspection: normal respiratory effort Cardio Rate: regular rate Rhythm: regular rhythm GI Palpation (GI): Soft to palpation and nontender General: Yes no CVA tenderness Back/Spine/Pelvis Back: no CVA tenderness Skin Other: maculopapular rash whole body including palms and soles and face Neuro General: patient oriented x3 Cranial nerves: Yes CN's II-XII intact bilaterally and Yes Equal, round and reactive pupils present Extrem General: Yes normal to inspection Psych Appearance: grossly normal Assessment & Plan Assessment & Plan (1) HIV (human immunodeficiency virus infection): Comment: Patient has history of HIV, has not taken medications in 2 years. Will refer to Infectious Disease. Will draw HIV labs. Code(s): B20 - Human immunodeficiency virus [HIV] disease Category: Medical Qualifiers: HIV symptom status: unspecified Qualified Code(s): B20 - Human immunodeficiency virus [HIV] disease Plan: Biktarvy, one month and one refill. Bactrim prevent PJP. Check CD4 count and viral load. Needs rectal Pap and DAPHNIE and cultures. (2) Rash: Comment: Possible syphilis RPR titer Po Doxycycline also cover syphilis Code(s): R21 - Rash and other nonspecific skin eruption Category: Medical Plan: na (3) Thrush: Comment: oral swish and spit nystatin per patient Code(s): B37.0 - Candidal stomatitis Category: Medical Plan: na Orders: Orders HIV-1 RNA QN PCR Expanded Today B20 - Human immunodeficiency virus [HIV] disease RPR Monitor reflex titer Today B20 - Human immunodeficiency virus [HIV] disease Lymphocyte Subset Panel 3 Today B20 - Human immunodeficiency virus [HIV] disease Medications: New sulfamethoxazole-trimethoprim 800-160 mg (Bactrim DS) 1 tab PO DAILY 30 days 30 tabs 3RF zjpfvxewp-nakcpcnq-ifzxavx ala 50-200-25 mg (Biktarvy) 1 tab PO DAILY 30 days 30 tabs 1RF doxycycline hyclate 100 mg PO BID 30 days 60 caps 0RF nystatin swish and swallow 1 mL PO DAILY 10 days 10 mL 0RF Coding Level of Care Code New Pt Level 4 (68260) Diagnoses HIV infection, unspecified symptom status B20 HIV symptom status: unspecified Rash R21 Thrush B37.0
[2024-02-02 13:52] VITALS: PULSE 111; TEMP 37.1; O2SAT 98; BMI 45.5
== END 2024-02-02 14:27 | disposition home or self-care (01) ==
LOC: HO.HID 13:37
PROVIDERS: PCP Nurse Practitioner Primary Care; Visit Provider Internal Medicine
DX: B20 Human immunodeficiency virus [HIV] disease (principal); R21 Rash and other nonspecific skin eruption; B37.0 Candidal stomatitis
CPT/HCPCS: 99204

== ENCOUNTER 2024-02-02 13:37 | Outpatient (REF) | payer OTHER, SELFPAY ==
[2024-02-04 03:45] LABS: HBS Num1 10.34 mIU/mL (0-7.99); HBc Num1 0.09 S/CO (0.00-0.79); HBsAGNum1 0.28 S/CO (0.00-0.99); Hepatitis B Core Antibody Nonreactive (Nonreactive); Hepatitis B Surface Antigen Negative (Negative); ~HepC Num1 0.09 S/CO (0.00-0.79); ~Hepatitis A Antibody IgM Nonreactive (Nonreactive); ~Hepatitis C Antibody Nonreactive (Nonreactive)
[2024-02-04 04:38] LABS: HBS Num2 10.23 mIU/mL (0-7.99); HBS Num3 10.04 mIU/mL (0-7.99); ~Hepatitis B Surface Antibody GRAYZONE (Nonreactive)
[2024-02-04 13:57] LABS: RPR Rapid Plasma Reagin REACTIVE (NON-REACTIVE)
[2024-02-04 15:23] LABS: Rapid Plasma Reagin Ab Titer 1:32
[2024-02-05 19:29] LABS: HIV RNA PCR Qn Copies 125000 copies/mL (NOT DETECTED)
[2024-02-06 16:33] LABS: Absolute CD3 Count 963 cells/uL (840-3060); Absolute CD4 Count 87 cells/uL (490-1740); Absolute CD8 Count 841 cells/uL (180-1170); Absolute Lymphocytes 1295 cells/uL (850-3900); Percent CD3 Cells 74 % (57-85); Percent CD4 Cells 7 % (30-61); Percent CD8 Cells 65 % (12-42)
== END 2024-02-02 13:38 | disposition home or self-care (01) ==
LOC: HO.LAB 13:37
PROVIDERS: PCP Nurse Practitioner Primary Care; Visit Provider Internal Medicine
DX: B20 Human immunodeficiency virus [HIV] disease (principal); R74.8 Abnormal levels of other serum enzymes; B37.0 Candidal stomatitis; R21 Rash and other nonspecific skin eruption
CPT/HCPCS: 36415; 86359; 86360; 86592; 86593; 86704; 86706; 86709; 86803; 87340; 87536

== ENCOUNTER 2024-07-05 06:41 | Emergency (ER) | payer MEDICAID, SELFPAY ==
[2024-07-05] VITALS (16 sets, daily range): BP systolic 132–258; BP diastolic 69–155; PULSE 58–86; RESP 12–26; TEMP -17.7–36.6; O2SAT 96–100; BMI 38.0
--- NOTE | ~2024-07-05 | CT_ITS ---
EXAMINATION: CTA NECK WITH CONTRAST (STROKE) CTA BRAIN WITH CONTRAST (STROKE) CLINICAL INFORMATION: Right hemiparesis, acute parenchymal hemorrhage COMPARISON: CT scan of brain on 12/23/2013, MRI of brain on 12/24/2013, stroke CT scan of brain on 07/05/2024. TECHNIQUE: CTA of the head and neck was performed in the axial plane from the mediastinum to the skull vertex using 70 mL Omnipaque 350 intravenous contrast. Additional reformatted multiplanar images including maximum intensity projection MIP images are generated on the CT workstation. This CT examination was performed using dose optimization techniques as appropriate, variously including the following: *Automated exposure control *Adjustment of mA and/or kV according to patient size (this includes techniques or standardized protocols for targeted exams where dose is matched to indication/reason for exam; i.e. extremities or head) *Use of iterative reconstruction technique DLP: 1791 mGy-cm EXAMINATION: CT brain. A large acute left frontal lobe cerebral parenchymal hematoma is present, measuring 6.0 cm in AP diameter, 4.6 cm in width, 4.1 cm in vertical height, markedly effacing the left lateral ventricle. Acute intraventricular hematoma is present in the left lateral ventricle extending to left occipital horn. There is additional acute intraventricular hematoma in posterior right lateral ventricle and right occipital horn. There is interval extension of intraventricular acute hematoma through the aqueduct of Sylvius into the fourth ventricle and cisterna magnum. There is significant mass effect causing midline shift to the right by 0.9 cm. Zayas and white matter differentiation is normal. Bone window images show no evidence of skull fracture. Moderate polypoid mucosal thickening is seen at the floor of right maxillary sinus. CT/CT angio head neck STROKE IMPRESSION: Since earlier noncontrast CT scan of brain on 07/05/2024, there are: 1. Persistent Large acute left frontal lobe cerebral parenchymal hematoma measuring 6.0 x 4.6 x 4.1 cm, markedly effacing the left lateral ventricle. 2. Persistent Acute intraventricular hematoma in the left lateral ventricle extending to left occipital horn, posterior right lateral ventricle and right occipital horn. 3. Interval extension of intraventricular acute hematoma through the aqueduct of Sylvius into the fourth ventricle and cisterna magnum. 4. Persistent Subfalcine herniation to the right by 0.9 cm. EXAMINATION: CT angiogram of brain. COMPARISON: None available. FINDINGS: There is normal visualization of bilateral anterior, middle and posterior cerebral arteries, internal carotid arteries, basilar artery and terminal portions of bilateral vertebral arteries. Anterior communicating artery is normal. Bilateral posterior communicating arteries are normal. Multiple focal extraluminal contrast collections are seen within the large left frontal hematoma, possibly from the M3 and M4 arterial branches of the left middle cerebral artery. Bilateral internal carotid siphons are smoothly patent. Timing of the bolus allows assessment of the major dural venous sinuses. The major cerebral venous sinuses show normal contrast filling. IMPRESSION: 1. Findings could represent multifocal active hemorrhage from M3 and M4 arterial branches of left middle cerebral artery into the acute left frontal lobe hematoma. 2. No focal cerebral arterial lesion or significant arterial stenosis is seen. 3. Evaluation is limited by patient motion blurring. EXAMINATION: CT angiogram of neck. COMPARISON: None available. STENOSIS MEASUREMENT: Degree of stenosis was measured and calculated based on NASCET criteria. Carotid stenosis reference using NASCET criteria: % stenosis = (1 - narrowest ICA diameter/diameter of distal cervical ICA) x 100. Mild - < 50% stenosis. Moderate - 50-69% stenosis. Severe - 70-94% stenosis. Near occlusion - 95-99% stenosis. Occluded - 100% stenosis. FINDINGS: RIGHT SIDE: Right internal carotid artery: Smoothly patent. Right external carotid artery: Smoothly patent. Right common carotid artery: Smoothly patent. Right vertebral artery: Smoothly patent. LEFT SIDE: Left internal carotid artery: Smoothly patent. Left external carotid artery: Smoothly patent. Left common carotid artery: Smoothly patent. Left vertebral artery: Smoothly patent. At the superior mediastinum, the visualized right innominate artery, bilateral subclavian arteries and common carotid arteries are smoothly patent starting from the origin at the aortic arch. There is a bovine arch with the right innominate artery and the left common carotid artery sharing a common trunk off the aortic arch. IMPRESSION: 1. Normal CT angiogram of the neck. No evidence of significant carotid stenosis. 2. Patent bilateral vertebral arteries of similar sizes. 3. Evaluation is limited by patient motion blurring. This critical result was discussed with RICHARD Cote on 07/05/2024 at 804 hours and it was ascertained that the content and urgency of this report was understood at the time of direct communication. Electronically signed by: Gautam Hough MD 07/05/2024 08:06 AM [facility] EVANS
--- NOTE | ~2024-07-05 | XR_ITS ---
EXAMINATION: XR CHEST CLINICAL INFORMATION: Intubation. COMPARISON: None available. TECHNIQUE: Frontal view of the chest was obtained. FINDINGS: Lateral left costophrenic angle hemithorax excluded from the field of view, limiting evaluation. There is no gross pneumothorax. Cardiomediastinal silhouette partially excluded from the field of view on the left, limiting evaluation. Diffuse interstitial and airspace opacities difficult to characterize due to low lung volumes and technical factors. ET tube tip projects approximately 1.1 cm above the andrei. NG tube tip projects below the lower limits of the film, but at least into the left upper quadrant. XR/XR chest 1V IMPRESSION: 1. ET tube tip projects approximately 1.1 cm above the andrei and should be repositioned. 2. NG tube tip projects below the lower limits of the film, but at least into the left upper quadrant. 3. Diffuse interstitial and airspace opacities difficult to characterize due to low lung volumes and technical factors. This study was presented today July 05, 2024 for interpretation. Stat results provided at this time as requested by referring provider. This study was presented to in on July 05, 2024 for interpretation. [facility] staff will provide results to referring provider at this time. Electronically signed by: Cathy Jones MD 07/05/2024 10:00 AM TRACIE
--- NOTE | ~2024-07-05 | CT_ITS ---
EXAMINATION: CT HEAD WITHOUT CONTRAST/STROKE ALERT CLINICAL INFORMATION: Right hemiparesis. COMPARISON: CT scan of brain on 12/23/2013 TECHNIQUE: Contiguous axial imaging was performed from the skull-base to vertex without intravenous administration of contrast. This CT examination was performed using dose optimization techniques as appropriate, variously including the following: *Automated exposure control *Adjustment of mA and/or kV according to patient size (this includes techniques or standardized protocols for targeted exams where dose is matched to indication/reason for exam; i.e. extremities or head) *Use of iterative reconstruction technique DLP: 942 mGy-cm FINDINGS: A large acute left frontal lobe cerebral parenchymal hematoma is present, measuring 6.0 cm in AP diameter, 4.6 cm in width, 4.1 cm in vertical height, markedly effacing the left lateral ventricle. Acute intraventricular hematoma is present in the left lateral ventricle extending to left occipital horn. There could be additional acute intraventricular hematoma in posterior right lateral ventricle and right occipital horn. There is significant mass effect causing midline shift to the right by 0.9 cm. Zayas and white matter differentiation is normal. Bone window images show no evidence of skull fracture. Moderate polypoid mucosal thickening is seen at the floor of right maxillary sinus. CT/CT head for STROKE IMPRESSION: 1. Interval development of Large acute left frontal lobe cerebral parenchymal hematoma measuring 6.0 x 4.6 x 4.1 cm, markedly effacing the left lateral ventricle. 2. Acute intraventricular hematoma in the left lateral ventricle extending to left occipital horn, posterior right lateral ventricle and right occipital horn. 3. Interval development of Subfalcine herniation to the right by 0.9 cm. This critical result was discussed with Dr. Benito Kelly on 07/05/2024 at 738 hours EST and it was ascertained that the content and urgency of this report was understood at the time of direct communication. Electronically signed by: Gautam Hough MD 07/05/2024 07:40 AM EST
--- NOTE | 2024-07-05 07:00 | ED_ITS ---
HPI - General Adult General Chief complaint: General Medical Stated complaint: SUBSTANCE ABUSE Time Seen by Provider: 07/05/24 07:00 History of Present Illness ED Provider: Leticia MENEZES narrative: The patient is a 39-year-old male who was brought to the hospital by ambulance. History is very limited. Apparently his roommate had called 911. Paramedics state that the roommate was rolling around on the ground, not answering questions. The patient apparently denied using alcohol or drugs. EMS administered naloxone and ondansetron. On arrival here the patient was nonverbal. He seemed to have significant right-sided weakness. The patient has a history of HIV. He also has a history of hypertension. According to old records the patient seems to have been poorly compliant with medications for hypertension and HIV. Patient had apparently been off all medications because of difficulty with finding a primary care doctor. The patient was seen at [facility] in 09/21/2023 and restarted on antihypertensive medications, lisinopril hydrochlorothiazide 2012.5 mg daily. The patient was seen at Dr. [facility] infectious disease clinic on 02/02/2024 and was prescribed Biktarvy and Bactrim. Related Data Previous Rx's ?Medication ?Instructions ?Recorded bictegravir 50 mg-emtricitabine 1 tab PO DAILY 30 days #30 tabs 02/02/24 200 mg-tenofovir alafenam 25 mg tablet (Biktarvy) doxycycline hyclate 100 mg capsule 100 mg PO BID 30 days #60 caps 02/02/24 nystatin 100,000 unit/mL oral 1 ml PO DAILY 10 days #10 mL 02/02/24 suspension sulfamethoxazole 800 1 tab PO DAILY 30 days #30 tabs 02/02/24 mg-trimethoprim 160 mg tablet (Bactrim DS) penicillin G benzathine 2.4 2.4 mmu IM ONCE 1 dose #1 ea 02/07/24 million unit intramuscular suspension Allergies Allergy/AdvReac Type Severity Reaction Status Date / Time morphine AdvReac Itching Verified 07/05/24 07:04 bee sting Allergy Intermediate Anaphylaxis Uncoded 07/05/24 07:04 Review of Systems 2 Review of Systems: Yes all other systems are reviewed and are negative PMFSH Past Medical History Medical History (Updated 07/05/24 @ 08:42 by Benito Kelly MD) Thrush Rash HIV (human immunodeficiency virus infection) Asthma GERD (gastroesophageal reflux disease) Hypertension Surgical History H/O endoscopy Family History Family History Maternal Grandmother Breast cancer Social History Social History Housing: Apartment Patient Tobacco Use Status: Current everyday Tobacco user Tobacco use type: Cigarette Cigarette Packs Per Day: 0.25 Cigarettes Per Day: 3 e-Cigarette/Vaping Use: Never Used Second Hand Smoke Exposure: No Advance Directives: No Do you have a plan to hurt others: No Plan service: No Current occupational status: employed Cognitive needs: No Hearing needs: No Vision needs: No Physical Exam ED Vital Signs: Vital Signs - 24 hr 07/05/24 06:54 07/05/24 07:02 07/05/24 07:55 Temperature 97.9 F 97.9 F Pulse Rate 85 83 70 Respiratory Rate 18 13 26 H Blood Pressure 133/69 133/69 239/155 H Pulse Oximetry 97 96 Oxygen Delivery Method Room Air Nasal Cannula Oxymask Fraction of Inspired Oxygen 07/05/24 08:01 07/05/24 08:08 07/05/24 08:16 Temperature Pulse Rate 64 66 83 Respiratory Rate 25 H 12 22 H Blood Pressure 231/133 H 231/133 H 258/144 H Pulse Oximetry 100 Oxygen Delivery Method Fraction of Inspired Oxygen 07/05/24 08:18 07/05/24 08:19 07/05/24 08:24 Temperature Pulse Rate 86 68 60 Respiratory Rate 25 H Blood Pressure 258/144 H 258/144 H 240/100 H Pulse Oximetry Oxygen Delivery Method Fraction of Inspired Oxygen 07/05/24 08:24 07/05/24 08:31 Temperature Pulse Rate 64 Respiratory Rate Blood Pressure 240/100 H Pulse Oximetry Oxygen Delivery Method Fraction of Inspired Oxygen 100 BMI result Body Mass Index 38.0 Const Other: The patient is an obese 39-year-old male who was very drowsy. He aroused to verbal stimuli and follows simple commands using the left side of his body. He said very little. HENMT Other: No definite facial asymmetry. Eyes Other: Pupils round equal, he was able to look to the right but he seemed to have a left gaze preference. Neck Neck: Yes full ROM Resp Effort & Inspection: normal respiratory effort Auscultation: clear to auscultation bilaterally Cardio Rate: regular rate Rhythm: regular rhythm Heart sounds: S1 normal heart sound present and S2 normal heart sound present GI Other: Abdomen is soft and nontender Skin Other: Skin was initially dry. Later diaphoretic. Neuro Other: The patient was drowsy. He opened his eyes to verbal stimuli and follows simple commands but said little or nothing. No definite facial asymmetry. He seemed to have a left gaze preference. He had normal strength in his right arm in his right leg but seemed to have almost flaccid right arm and right leg. Upgoing toe in the right foot. Extrem Other: No peripheral edema Medications Administered Generic Name Dose Route Start Last Admin Trade Name Freq PRN Reason Stop Dose Admin Fentanyl 1,000 mcg in 100 mls @ 0 mls/hr 07/05/24 08:00 07/05/24 08:18 Sublimaze/Ns IVCONT 150 mcg/hr .Q0M HERMELINDO 15 mls/hr Titration Protocol Per Protocol Nicardipine HCl 25 mg/ Sodium 250 mls @ 0 mls/hr 07/05/24 08:15 07/05/24 08:24 Chloride IVCONT 5 mg/hr .Q0M HERMELINDO 50 mls/hr Administration Protocol Per Protocol Discontinued Medications Generic Name Dose Route Start Last Admin Trade Name Freq PRN Reason Stop Dose Admin Etomidate 25 mg 07/05/24 07:53 07/05/24 08:03 Etomidate 20 Mg/10 Ml Vial IVPUSH 07/05/24 07:54 25 mg ONCE ONE Administration Midazolam HCl 50 mg in 50 mls @ 2 mls/hr 07/05/24 08:00 07/05/24 08:24 Versed IVCONT 4 mg/hr .Q24H HERMELINDO 4 mls/hr Infusion 2 MG/HR Iohexol 100 ml 07/05/24 07:42 07/05/24 07:43 Iohexol 350 Mg/Ml 100 Ml Infus..Btl IV 07/05/24 07:43 70 ml ONCE ONE Administration Labetalol HCl 20 mg 07/05/24 08:10 07/05/24 08:19 Labetalol Hcl 100 Mg/20 Ml Vial IVPUSH 07/05/24 08:11 20 mg ONCE ONE Administration Midazolam HCl 5 mg 07/05/24 08:16 07/05/24 08:19 Midazolam Hcl/Pf 2 Mg/2 Ml Vial IVPUSH 07/05/24 08:17 5 mg ONCE ONE Administration Succinylcholine Chloride 170 mg 07/05/24 07:53 07/05/24 08:04 Succinylcholine Chloride 100 Mg/5 Ml Syringe IVPUSH 07/05/24 07:54 170 mg ONCE ONE Administration Procedures Intubation Intubation Type:: Endotracheal Tube Insertion Intubation Date:: 07/05/24 sedative: Etomidate Mg Given: 25 paralytic: Succinylcholine Mg Given: 170 Laryngoscope: fiber optic video scope ET Tube Size: 7.5 ET Tube Uncuffed: No Tube Placement Confirmation: visualized tube passing through cords, equal breath sounds bilaterally and confirmation by capnometry Patient Tolerated Procedure: well Additional Comments: The patient was significantly hypertensive following the procedure. Medical Decision Making Medical Decision Making [facility] Narrative: The patient is a 39-year-old with a history of HIV and hypertension. He has a history of poor compliance with medications. His last known well time is unknown. Apparently he lives with a roommate. Apparently the roommate called 911 when the patient seemed to be acting strangely. Paramedics transferred the patient to the hospital. Here he had an obvious right-sided hemiparesis and a diminished level of consciousness. He was sent for a noncontrast head CT and CT angiogram of the head and neck. The noncontrast head CT showed a large hemorrhage in the left frontal lobe, 6 cm x 4.6 cm x 4.1 cm with a 9 mm midline shift. Case was discussed with neuro critical care at [facility] who advised 250 mL of hypertonic saline over [address] scan the patient started vomiting a great deal. He continued to have a diminished level of consciousness. At that point I thought he should be intubated. He was intubated with 25 mg of etomidate and 170 mg of succinylcholine. Intubation was without complications. An OG tube was placed as well. After intubation the patient was significantly hypertensive. He was given IV labetalol and IV midazolam as well as midazolam and fentanyl drips. He was also started on a nicardipine drip. Hypertonic saline has been ordered. The patient has been accepted in transfer to [facility]. Lab Data 07/05/24 07:20 07/05/24 07:20 Labs: Lab Results 07/05/24 07/05/24 Range/Units 07:20 07:30 WBC 5.3 (4.8-10.8) X10*3/uL RBC 4.59 L (4.60-5.80) X10*6/uL Hgb 14.4 (14.0-18.0) g/dl Hct 41.9 L (42.0-52.0) % MCV 91.3 (80.0-98.0) fL MCH 31.4 (27.0-33.0) pg MCHC 34.4 (31.0-36.0) g/dl RDW 11.9 (11.0-16.0) % Plt Count 193 (160-400) X10*3/uL MPV 9.3 L (9.4-12.4) fL Immature Gran % (Auto) 0.6 H (0.0-0.4) % Neut % (Auto) 56.5 (45-73) % Lymph % (Auto) 32.4 (20-40) % [place] % (Auto) 8.2 (2-11) % Eos % (Auto) 1.9 (0-4) % Baso % (Auto) 0.4 (0-2) % Lymph # (Auto) 1.7 (1.2-4.9) X10*3/uL [place] # (Auto) 0.4 (0.1-1.2) X10*3/uL Eos # (Auto) 0.1 (0.0-0.4) X10*3/uL Baso # (Auto) 0.0 (0.0-0.2) X10*3/uL Abs Immat Gran (auto) 0.03 (0.00-0.03) X10*3/uL Absolute Neuts (auto) 3.0 (2.0-8.3) x10*3/uL Absolute Nucleated RBC 0.000 (0.0-0.012) X10*3/uL Nucleated RBC % (auto) 0.0 (0.0-0.2) /100WBC PT 13.1 H (10.9-12.4) SEC INR 1.1 (0.9-1.1) APTT 31.7 (26.0-36.8) SEC Sodium 142 (135-145) mmol/L Potassium 3.2 L (3.3-5.1) mmol/L Chloride 106 (96-108) mmol/L Carbon Dioxide 26 (22-29) mmol/L Anion Gap 13 (12-20) BUN 13 (9-16) mg/dL Creatinine 0.76 (0.5-1.4) mg/dL Estim Creat Clear Calc 159.4 Estimated GFR > 60 POC Glucose 164 H (60-115) mg/dL Random Glucose 161 H (60-115) mg/dL Calcium 9.1 D (8.4-10.2) mg/dL Troponin I High Sens 33.4 (<3.5-35.0) ng/L Triglycerides 63 (<150) mg/dL Cholesterol 136 (<200) mg/dL LDL Cholesterol, Calc 84 (<100) mg/dL HDL Cholesterol 40 L (>40) mg/dL Ethyl Alcohol < 10 mg/dL Critical Care Time Critical Care Time Critical Care Time: Yes Total Critical Care Time: 35 Attestation: The patient was critically ill with a high probability of imminent or life- threatening deterioration. ?I spent greater than 30 minutes of discontinuous time evaluating the patient, delivering critical care at the bedside, discussing evaluating data with consultants. ?Critical care time does not include time spent performing separately billable procedures or teaching. ?Time spent performing critical care with 35 minutes. Discharge Plan Discharge Clinical Impression: Acute intracerebral hemorrhage [facility] Transfer Details: [facility] Prescriptions: No Action Biktarvy 50-200-25 mg tablet 1 tab PO DAILY 30 Days Qty: 30 1RF doxycycline hyclate 100 mg capsule 100 mg PO BID 30 Days Qty: 60 0RF nystatin 100,000 unit/mL suspension 1 ml PO DAILY 10 Days Qty: 10 0RF Rx Instructions: swish and swallow sulfamethoxazole-trimethoprim [Bactrim DS] 800-160 mg tablet 1 tab PO DAILY 30 Days Qty: 30 3RF penicillin G benzathine 2.4 million unit suspension for reconstitution 2.4 mmu IM ONCE Qty: 1 0RF Print Language: Barbadian
--- NOTE | 2024-07-05 07:10 | ECG_ITS ---
Test Reason : unresponsive Blood Pressure : / mmHG Vent. Rate : 071 BPM Atrial Rate : 071 BPM P-R Int : 162 ms QRS Dur : 106 ms QT Int : 478 ms P-R-T Axes : 056 011 189 degrees QTc Int : 519 ms Poor data quality, interpretation may be adversely affected Normal sinus rhythm Minimal voltage criteria for LVH, may be normal variant ( [place] product ) ST & T wave abnormality, consider inferolateral ischemia Prolonged QT Abnormal ECG When compared with ECG of 23-DEC-2013 22:20, Criteria for Septal infarct are no longer Present T wave inversion now evident in Lateral leads Referred By: Benito Kelly Electronically Signed By:
[2024-07-05 07:24] LABS: MANUAL DIFF FLAG NO
[2024-07-05 07:27] LABS: Basophils Percent Auto 0.4 % (0-2); Eosinophils Absolute Auto 0.1 X10*3/uL (0.0-0.4); Eosinophils Percent Auto 1.9 % (0-4); Hematocrit 41.9 % (42.0-52.0); Hemoglobin 14.4 g/dl (14.0-18.0); Imm Gran Abs Auto 0.03 X10*3/uL (0.00-0.03); Imm Gran Pct Auto 0.6 % (0.0-0.4); Lymphocytes Absolute Auto 1.7 X10*3/uL (1.2-4.9); Lymphocytes Percent Auto 32.4 % (20-40); Mean Corpuscular HGB Conc 34.4 g/dl (31.0-36.0); Mean Corpuscular Hemoglobin 31.4 pg (27.0-33.0); Mean Corpuscular Volume 91.3 fL (80.0-98.0); Mean Platelet Volume 9.3 fL (9.4-12.4); Monocytes Absolute Auto 0.4 X10*3/uL (0.1-1.2); Monocytes Percent Auto 8.2 % (2-11); Neutrophils Percent Auto 56.5 % (45-73); Platelet Count 193 X10*3/uL (160-400); Red Blood Count 4.59 X10*6/uL (4.60-5.80); Red Cell Distribution Width 11.9 % (11.0-16.0); White Blood Count 5.3 X10*3/uL (4.8-10.8)
[2024-07-05 07:30] LABS: INTERNATIONAL NORM RATIO 1.1 (0.9-1.1); Prothrombin Time 13.1 SEC (10.9-12.4)
[2024-07-05 07:33] LABS: Partial Thromboplastin Time 31.7 SEC (26.0-36.8)
[2024-07-05 07:34] LABS: Stroke Lab Use COMPLETE
[2024-07-05 07:38] LABS: Glucose, Whole Blood 164 mg/dL (60-115)
[2024-07-05 07:39] LABS: Anion Gap 13 (12-20); Blood Urea Nitrogen 13 mg/dL (9-16); Calcium 9.1 mg/dL (8.4-10.2); Carbon Dioxide 26 mmol/L (22-29); Chloride 106 mmol/L (96-108); Cholesterol 136 mg/dL (<200); Creatinine Clr Calc Pharmacy 159.4; Estimated Glomerular Filt Rate > 60; Glucose Random 161 mg/dL (60-115); HDL Cholesterol 40 mg/dL (>40); LDL Cholesterol Calculated 84 mg/dL (<100); Potassium 3.2 mmol/L (3.3-5.1); Sodium 142 mmol/L (135-145); Triglycerides 63 mg/dL (<150)
[2024-07-05 07:40] LABS: Ethanol < 10 mg/dL
[2024-07-05] MEDS: iohexoL 350 MG/ML 100 ML INFUS..BTL IV (07:43)
[2024-07-05 07:46] LABS: Troponin-I High Sensitivity 33.4 ng/L (<3.5-35.0)
[2024-07-05] MEDS: Etomidate 20 MG/10 ML VIAL 25 MG IVPUSH (08:03)
[2024-07-05] MEDS: Succinylcholine Chloride 100 MG/5 ML SYRINGE 170 MG IVPUSH (08:04)
[2024-07-05] MEDS: Midazolam HCl/NS 50 MG/50 ML PLAST..BAG IVCONT ×3 (08:08→09:46)
[2024-07-05] MEDS: fentaNYL citrate/NS 1,000 MCG/100 ML PLAST..BAG 2.5 MCG IVCONT (08:11)
[2024-07-05] MEDS: Midazolam HCl/PF 2 MG/2 ML VIAL 5 MG IVPUSH (08:19)
[2024-07-05] MEDS: Labetalol HCL 100 MG/20 ML VIAL 20 MG IVPUSH (08:19)
[2024-07-05] MEDS: niCARdipine HCL 25 MG in 0.9 % Sodium Chloride 240 ML 50 MG IVCONT (08:24)
--- NOTE | 2024-07-05 08:45 | PC.NURSE ---
Vent settings: AC/VC RR 16 Vt 400 FiO2 100% PEEP 5
[2024-07-05] MEDS: Sodium Chloride 3 % 100 ML 400 ML IV ×2 (08:46→09:01)
--- NOTE | 2024-07-05 08:55 | PC.NURSE ---
Late entry: Pt brought here from CT scan due to continuous vomiting and inability to protect this airway. Decision made to intubate, , RT and multiple RNs at bedside. 0803 Etomidate 25 mg 0804 175 mg of Succ 0805 Intubated by MD Kelly, 7.5 ETT, 27 @lip 0806 OG placed by , 16Fr IVs: 20G in right AC, 20G in left hand Infusions running: Nicardipine 5mg/hr with goal to keep systolic 130-150 Hypertonic 3% 2 bags over 15 mins each Versed for sedation Fentanyl for sedation Crow Cath placed with urine output of 150mL, light yellow Will continue to monitor
[2024-07-05 09:25] LABS: Amphetamine Screen Urine Not Detected (Not Detect); Barbiturates, Urine Not Detected (Not Detect); Benzodiazepines Screen Urine POSITIVE (Not Detect); Buprenorphine Scr Not Detected (Not Detect); Cannabinoid Screen Urine POSITIVE (Not Detect); Cocaine Screen Urine Not Detected (Not Detect); Fentanyl, urine Not Detected (Not Detect); Methadone Screen, Urine Not Detected (Not Detect); Opiate Screen Urine Not Detected (Not Detect); Oxycodone Screen Urine Not Detected (Not Detect); Phencyclidine Screen Urine Not Detected (Not Detect)
--- NOTE | 2024-07-05 09:28 | PC.NURSE ---
Pt continuing to tolerate vent well, titrations as listed with some verbal md orders to increase. BPs more stable and MD reported to keep systolic between 130-150. Critical care unit at bedside now to transport to [facility] Neuro ICU
[2024-07-05 09:31] LABS: COVID-19 Test Negative (Negative); IDNOW Serial# 152EDE1D
--- NOTE | 2024-07-05 09:37 | PC.NURSE ---
Report given to Kendall DE LA O at neuro ICU
[2024-07-05 09:45] LABS: Appearance Urine Clear; Color Urine Yellow; Glucose Urine UA 250 mg/dL (Negative); Leukocyte Esterase Urine Negative (Negative); Nitrite Urine Negative (Negative); UMIC TRIGGER UACC YES; Urine Blood Trace (Negative); Urine Ketones Trace mg/dL (Negative); Urine Protein 100 (2+) mg/dL (Neg-Trace)
[2024-07-05 09:49] LABS: Influenza A PCR NEGATIVE (Negative); Influenza B PCR NEGATIVE (Negative); Resp Syncy Virus RNA Qual PCR NEGATIVE (Negative); SARS COV2 PCR INHOUSE NEGATIVE (Negative)
[2024-07-05 10:51] LABS: Bacteria Urine None Seen (None Seen); Hyaline Casts Urine 0-2 /LPF (0-2); RBC Urine 0-2 /HPF (0-2); Squamous Epithelial Cell Urine 0-2 /HPF (0-2); WBC Urine 0-5 /HPF (0-5)
[2024-07-05 12:21] LABS: ~PT, ~INR - Anti Coag Clinic 1.2 (0.9-1.1)
[2024-07-05 12:22] LABS: Prothrombin Time Whole Bld POC 14.3 sec (11.1-13.5)
--- NOTE | 2024-07-06 11:44 | MHC.STROKE ---
Late entry 07/05/24 0800: Called to ED for patient that had large bleed noted on CT scan. According to EMS, roommate noted patient rolling around on ground and not answering questions. LKWT was unknown. EMS was called and patient transported to [facility]. CT scan completed upon arrival and large bleed noted. Due to vomiting in CT scan, patient was intubated to protect airway. Spoke with Dr. Kelly. Plan is for patient transfer to [facility]. Unable to provide stroke education due to AMS/intubation. Pt will be admitted to neuro ICU.
== END 2024-07-05 09:47 | disposition short-term general hospital (02) ==
PROVIDERS: Emergency Provider Emergency Medicine; PCP Physician Assistant Medical
DX: I61.9 Nontraumatic intracerebral hemorrhage, unspecified (principal); B20 Human immunodeficiency virus [HIV] disease; I10 Essential (primary) hypertension; J45.909 Unspecified asthma, uncomplicated; F17.210 Nicotine dependence, cigarettes, uncomplicated; Z91.148 Patient's other noncompliance with medication regimen for other reason; Z03.818 Encounter for observation for suspected exposure to other biological agents ruled out
CPT/HCPCS: 0241U; 31500; 36415; 43752; 70450; 70496; 70498; 71045; 80048; 80061; 80307; 81001; 82947; 84484; 85025; 85610; 85730; 87635; 93005; 94002; 96361; 96365; 96375; 99285; J0330; J1920; J2250; J2251; J2404; J3010; J7131; Q9967